=== PATIENT | male | born 1965 | race Caucasian/White ===

== ENCOUNTER 2023-11-16 18:00 | Inpatient (IN) | payer MEDICAID ==
[~2023-11-16] VITALS: Ht 170.2 cm; Wt 88.9 kg
[2023-11-16 18:02] VITALS: BP 112/68; PULSE 114; RESP 26; TEMP 101.7; O2SAT 100
[2023-11-16] MEDS ORDERED: cefTRIAXone 1,000 MG VIAL ONE (18:19)
[2023-11-16] MEDS: NACL 0.9% 1,000 ML IV SCH (18:32)
[2023-11-16 18:33] LABS: BASOPHILS # (AUTO) 0.1 K/uL (0.00-0.22); BASOPHILS % (AUTO) 0.8 % (0.0-2.0); EOSINOPHILS # (AUTO) 0.1 K/uL (0-0.4); EOSINOPHILS % (AUTO) 0.7 % (0.0-4.0); HEMATOCRIT 22.3 % (36-52); HEMOGLOBIN 7.4 g/dL (12.0-18.0); LYMPHOCYTES # (AUTO) 3.3 K/uL (2.0-11.5); LYMPHOCYTES % (AUTO) 18.7 % (20.5-51.1); MEAN CORPUSCULAR HEMOGLOBIN 30 pg (27-31); MEAN CORPUSCULAR HGB CONC 33 g/dL (33-37); MEAN CORPUSCULAR VOLUME 90.8 fL (80-94); MONOCYTES # (AUTO) 0.5 K/uL (0.8-1.0); MONOCYTES % (AUTO) 2.7 % (1.7-9.3); NEUTROPHILS # (AUTO) 13.6 K/uL (1.8-7.7); NEUTROPHILS % (AUTO) 77.1 % (42.2-75.2); PLATELET COUNT (AUTO) 350 K/uL (140-450); RED BLOOD CELL COUNT(AUTO) 2.45 MIL/uL (4.20-6.10); WHITE BLOOD COUNT (AUTO) 17.6 K/uL (4.8-10.8)
[2023-11-16 18:38] LABS: APPEARANCE,URINE CLOUDY (CLEAR); BILIRUBIN,URINE 1+ (NEGATIVE); BLOOD, URINE 3+ (NEGATIVE); COLOR,URINE YELLOW (YELLOW); LEUKOCYTE ESTERASE ,URINE 2+ (NEGATIVE); NITRITE, URINE POSITIVE (NEGATIVE); PROTEIN,URINE 1+ (NEGATIVE); UGLUCOSE TRACE (NEGATIVE); UROBILINOGEN,URINE 0.2 EU/dL (0.2 - 1)
[2023-11-16] MEDS ORDERED: HYDR-1098 PO (18:42)
[2023-11-16] MEDS ORDERED: LISI-486 PO (18:42)
[2023-11-16] MEDS ORDERED: AMIO200T62 PO (18:42)
[2023-11-16] MEDS ORDERED: MIDO10TA PO (18:42)
[2023-11-16] MEDS ORDERED: DILT60TA97 PO (18:42)
[2023-11-16] MEDS ORDERED: APIX5TAB4 PO (18:42)
[2023-11-16] MEDS ORDERED: PANT40EC PO (18:42)
[2023-11-16 18:49] LABS: ANION GAP 14.6 (8-16); CALCIUM 9.3 mg/dL (8.5-10.1); CARBON DIOXIDE 29.4 mmol/L (21-32); CREATININE 3.4 mg/dL (0.6-1.3)
[2023-11-16 18:55] LABS: BACTERIA,URINE 10-30 (MOD) /HPF (None Seen); ICTOTEST NEGATIVE (NEGATIVE); RBC,URINE 11-20 (MOD) /HPF (0-5); SQUAMOUS EPITHELIAL CELL,UR 0-3 (FEW) /LPF (0-3 (FEW))
[2023-11-16 19:06] LABS: LACTIC ACID 1.3 mmol/L (0.4-2.0)
[2023-11-16 19:15] LABS: FLU A ANTIGEN negative (NEGATIVE); FLU B ANTIGEN NEGATIVE (NEGATIVE)
[2023-11-16 20:37] VITALS: BP 104/60; PULSE 117; O2SAT 100
[2023-11-16 20:54] VITALS: BP 116/66; PULSE 117; RESP 20; TEMP 98.7; O2SAT 100
[2023-11-16 21:18] VITALS: PULSE 120
[2023-11-16] MEDS: PIPERACILLIN/TAZOBACTAM 2.25 GM in DEXTROSE 5% 50 ML IV SCH (21:26)
[2023-11-16] MEDS: hydrALAZINE 25 MG TAB PO SCH (21:26)
[2023-11-16] MEDS: APIXABAN 2.5 MG TAB PO SCH (21:27)
[2023-11-16] MEDS: PIPERACILLIN/TAZOBACTAM 2.25 GM VIAL IV ONE (21:28)
[2023-11-16 22:31] VITALS: PULSE 110; O2SAT 100
[2023-11-16 23:55] VITALS: PULSE 104
[2023-11-17] VITALS (17 sets, daily range): BP systolic 78–98; BP diastolic 45–54; PULSE 96–109; RESP 20–28; TEMP 97.7–101.5; O2SAT 99–100
[2023-11-17] MEDS: PIPERACILLIN/TAZOBACTAM 2.25 GM VIAL IV ONE (04:27)
[2023-11-17] MEDS: MIDODRINE 5 MG TAB PO SCH ×2 (06:02→20:22)
[2023-11-17] MEDS: PANTOPRAZOLE 40 MG TABEC PO SCH (08:25)
[2023-11-17] MEDS: DILTIAZEM 60 MG TAB PO SCH (08:26)
[2023-11-17] MEDS: LANSOPRAZOLE 30 MG CAPDR GT SCH (09:00)
[2023-11-17] MEDS: EPOETIN ALFA-EPBX 10,000 UNITS/ML VIAL IV SCH (10:00)
[2023-11-17] MEDS: ACETAMINOPHEN 325 MG TAB PO PRN (17:18)
[2023-11-17] MEDS: AMIODARONE 200 MG TAB PO SCH (20:34)
[2023-11-18] VITALS (40 sets, daily range): BP systolic 77–144; BP diastolic 45–77; PULSE 81–104; RESP 12–27; TEMP 98.6–101.2; O2SAT 98–100
[2023-11-18] MEDS: MIDODRINE 5 MG TAB GT STA (02:45)
[2023-11-18 04:58] LABS: BASOPHILS # (AUTO) 0.1 K/uL (0.00-0.22); BASOPHILS % (AUTO) 0.5 % (0.0-2.0); EOSINOPHILS # (AUTO) 0.2 K/uL (0-0.4); LYMPHOCYTES # (AUTO) 1.8 K/uL (2.0-11.5); MEAN CORPUSCULAR HEMOGLOBIN 31 pg (27-31); MEAN CORPUSCULAR HGB CONC 33 g/dL (33-37); MEAN CORPUSCULAR VOLUME 92.3 fL (80-94); MONOCYTES # (AUTO) 0.4 K/uL (0.8-1.0); MONOCYTES % (AUTO) 2.7 % (1.7-9.3); NEUTROPHILS # (AUTO) 12.6 K/uL (1.8-7.7); NEUTROPHILS % (AUTO) 83.8 % (42.2-75.2); PLATELET COUNT (AUTO) 314 K/uL (140-450); RED CELL DISTRIBUTION WIDTH 20.8 % (11.6-13.7)
[2023-11-18 05:00] LABS: ANION GAP 12.9 (8-16); CALCIUM 9.1 mg/dL (8.5-10.1); CARBON DIOXIDE 28.8 mmol/L (21-32); POTASSIUM 3.7 mmol/L (3.5-5.1)
[2023-11-18 05:08] LABS: CREATININE 4.8 mg/dL (0.6-1.3)
[2023-11-18] MEDS: NOREPINEPHRINE 4 MG/4 ML VIAL IV ONE ×2 (05:33→05:34)
[2023-11-18] MEDS: NOREPINEPHRINE 8 MG in DEXTROSE 5% 250 ML IV PRN (05:37)
[2023-11-18 05:51] LABS: HEMATOCRIT 18.5 % (36-52); HEMOGLOBIN 6.1 g/dL (12.0-18.0)
[2023-11-19] VITALS (33 sets, daily range): BP systolic 88–138; BP diastolic 51–75; PULSE 77–103; RESP 13–29; TEMP 98.7–100; O2SAT 97–100
[2023-11-19 06:17] LABS: BASOPHILS # (AUTO) 0.1 K/uL (0.00-0.22); BASOPHILS % (AUTO) 0.8 % (0.0-2.0); EOSINOPHILS # (AUTO) 0.2 K/uL (0-0.4); EOSINOPHILS % (AUTO) 1.3 % (0.0-4.0); LYMPHOCYTES # (AUTO) 2.6 K/uL (2.0-11.5); LYMPHOCYTES % (AUTO) 15.4 % (20.5-51.1); MEAN CORPUSCULAR HEMOGLOBIN 30 pg (27-31); MEAN CORPUSCULAR HGB CONC 33 g/dL (33-37); MEAN CORPUSCULAR VOLUME 89.4 fL (80-94); MONOCYTES # (AUTO) 0.5 K/uL (0.8-1.0); MONOCYTES % (AUTO) 3.1 % (1.7-9.3); NEUTROPHILS # (AUTO) 13.2 K/uL (1.8-7.7); NEUTROPHILS % (AUTO) 79.4 % (42.2-75.2); PLATELET COUNT (AUTO) 346 K/uL (140-450); RED BLOOD CELL COUNT(AUTO) 2.09 MIL/uL (4.20-6.10); RED CELL DISTRIBUTION WIDTH 20.4 % (11.6-13.7); WHITE BLOOD COUNT (AUTO) 16.7 K/uL (4.8-10.8)
[2023-11-19 06:36] LABS: ANION GAP 15.3 (8-16); CALCIUM 8.1 mg/dL (8.5-10.1); CARBON DIOXIDE 26.7 mmol/L (21-32); HEMATOCRIT 18.7 % (36-52); HEMOGLOBIN 6.2 g/dL (12.0-18.0)
[2023-11-19 06:58] LABS: CREATININE 5.6 mg/dL (0.6-1.3)
[2023-11-20] VITALS (36 sets, daily range): BP systolic 93–148; BP diastolic 51–81; PULSE 77–100; RESP 12–29; TEMP 98–99.5; O2SAT 99–100
[2023-11-20 00:01] LABS: HEMATOCRIT 30.3 % (36-52); HEMOGLOBIN 10.4 g/dL (12.0-18.0)
[2023-11-20 06:45] LABS: BLOOD GAS BASE EXCESS 3.7 mmol/L (-2.0-2.0); BLOOD GAS HCO3 26.4 mmol/L (22-26); BLOOD GAS O2 SAT% 96.4 % (92.0-98.5); BLOOD GAS PCO2 33.9 mmHg (35-45); BLOOD GAS PO2 81.7 mmHg (75-100)
[2023-11-20 06:53] LABS: ANION GAP 14.3 (8-16); CALCIUM 9.4 mg/dL (8.5-10.1); CARBON DIOXIDE 28.8 mmol/L (21-32); CREATININE 3.8 mg/dL (0.6-1.3); POTASSIUM 3.1 mmol/L (3.5-5.1)
[2023-11-20 06:54] LABS: BASOPHILS # (AUTO) 0.1 K/uL (0.00-0.22); BASOPHILS % (AUTO) 0.5 % (0.0-2.0); EOSINOPHILS # (AUTO) 0.2 K/uL (0-0.4); EOSINOPHILS % (AUTO) 1.7 % (0.0-4.0); HEMATOCRIT 28.4 % (36-52); HEMOGLOBIN 9.6 g/dL (12.0-18.0); LYMPHOCYTES # (AUTO) 1.3 K/uL (2.0-11.5); MEAN CORPUSCULAR HEMOGLOBIN 30 pg (27-31); MEAN CORPUSCULAR HGB CONC 34 g/dL (33-37); MEAN CORPUSCULAR VOLUME 88.8 fL (80-94); MONOCYTES # (AUTO) 0.4 K/uL (0.8-1.0); MONOCYTES % (AUTO) 2.8 % (1.7-9.3); NEUTROPHILS # (AUTO) 11.1 K/uL (1.8-7.7); PLATELET COUNT (AUTO) 269 K/uL (140-450); RED BLOOD CELL COUNT(AUTO) 3.19 MIL/uL (4.20-6.10); RED CELL DISTRIBUTION WIDTH 17.6 % (11.6-13.7)
[2023-11-20] MEDS: POTASSIUM CHLORIDE 20% 40 MEQ/15 ML UDC GT SCH (13:30)
[2023-11-20] MEDS: ONDANSETRON 4 MG/2 ML VIAL IVP PRN (14:01)
[2023-11-20] MEDS: ALBUTEROL SULFATE/IPRATROPIU 3 ML SOL IH PRN (14:21)
[2023-11-20] MEDS: ALBUTEROL SULFATE/IPRATROPIU 3 ML SOL IH SCH (19:29)
[2023-11-21] VITALS (32 sets, daily range): BP systolic 84–138; BP diastolic 45–95; PULSE 69–92; RESP 12–24; TEMP 98.7–100.4; O2SAT 97–100
[2023-11-21 05:55] LABS: BASOPHILS # (AUTO) 0.1 K/uL (0.00-0.22); BASOPHILS % (AUTO) 0.4 % (0.0-2.0); EOSINOPHILS # (AUTO) 0.3 K/uL (0-0.4); EOSINOPHILS % (AUTO) 2.2 % (0.0-4.0); HEMOGLOBIN 9.2 g/dL (12.0-18.0); LYMPHOCYTES # (AUTO) 1.8 K/uL (2.0-11.5); LYMPHOCYTES % (AUTO) 13.7 % (20.5-51.1); MEAN CORPUSCULAR HEMOGLOBIN 30 pg (27-31); MEAN CORPUSCULAR HGB CONC 34 g/dL (33-37); MEAN CORPUSCULAR VOLUME 88.8 fL (80-94); MONOCYTES # (AUTO) 0.4 K/uL (0.8-1.0); MONOCYTES % (AUTO) 2.7 % (1.7-9.3); NEUTROPHILS # (AUTO) 10.4 K/uL (1.8-7.7); PLATELET COUNT (AUTO) 267 K/uL (140-450); RED BLOOD CELL COUNT(AUTO) 3.04 MIL/uL (4.20-6.10); RED CELL DISTRIBUTION WIDTH 17.8 % (11.6-13.7); WHITE BLOOD COUNT (AUTO) 12.8 K/uL (4.8-10.8)
[2023-11-21 06:20] LABS: ANION GAP 16.3 (8-16); CALCIUM 9.8 mg/dL (8.5-10.1); CARBON DIOXIDE 27.1 mmol/L (21-32); POTASSIUM 3.4 mmol/L (3.5-5.1)
[2023-11-21 06:22] LABS: CREATININE 4.6 mg/dL (0.6-1.3)
[2023-11-21] MEDS: CIPROFLOXACIN 400 MG/200ML-D5W 200 ML IV SCH (11:52)
[2023-11-21] MEDS: HYDROcodone/APAP 5/325 MG 1 TAB TAB PO PRN (22:04)
[2023-11-22] VITALS (32 sets, daily range): BP systolic 97–146; BP diastolic 49–79; PULSE 79–119; RESP 16–26; TEMP 97.7–100.5; O2SAT 97–100
[2023-11-22 05:55] LABS: BASOPHILS # (AUTO) 0.1 K/uL (0.00-0.22); BASOPHILS % (AUTO) 0.5 % (0.0-2.0); EOSINOPHILS # (AUTO) 0.2 K/uL (0-0.4); EOSINOPHILS % (AUTO) 1.8 % (0.0-4.0); HEMATOCRIT 26.3 % (36-52); HEMOGLOBIN 8.8 g/dL (12.0-18.0); LYMPHOCYTES # (AUTO) 1.7 K/uL (2.0-11.5); LYMPHOCYTES % (AUTO) 15.1 % (20.5-51.1); MEAN CORPUSCULAR HEMOGLOBIN 31 pg (27-31); MEAN CORPUSCULAR HGB CONC 34 g/dL (33-37); MEAN CORPUSCULAR VOLUME 90.7 fL (80-94); MONOCYTES # (AUTO) 0.3 K/uL (0.8-1.0); MONOCYTES % (AUTO) 2.6 % (1.7-9.3); NEUTROPHILS # (AUTO) 8.8 K/uL (1.8-7.7); PLATELET COUNT (AUTO) 259 K/uL (140-450); RED CELL DISTRIBUTION WIDTH 17.8 % (11.6-13.7)
[2023-11-22 06:08] LABS: HEPATITIS A ANTIBODY IGM Negative (Negative); HEPATITIS B CORE AB TOTAL Negative (Negative); HEPATITIS B CORE, IGM Negative (Negative); HEPATITIS B SURFACE ANTIBODY Non Reactive (.); HEPATITIS B SURFACE ANTIGEN Negative (Negative); HEPATITIS C VIRUS ANTIBODY Non Reactive (Non Reactive)
[2023-11-22 06:52] LABS: ANION GAP 15.4 (8-16); CALCIUM 9.9 mg/dL (8.5-10.1); CARBON DIOXIDE 26.2 mmol/L (21-32); POTASSIUM 3.6 mmol/L (3.5-5.1)
[2023-11-22 06:54] LABS: CREATININE 5.3 mg/dL (0.6-1.3)
[2023-11-22 14:06] LABS: HEPATITIS A ANTIBODY TOTAL Positive (Negative)
[2023-11-23] VITALS (23 sets, daily range): BP systolic 91–139; BP diastolic 49–79; PULSE 80–101; RESP 16–26; TEMP 97.8–99.8; O2SAT 99–100
[2023-11-23 05:52] LABS: BASOPHILS % (AUTO) 0.5 % (0.0-2.0); EOSINOPHILS # (AUTO) 0.3 K/uL (0-0.4); EOSINOPHILS % (AUTO) 2.5 % (0.0-4.0); HEMATOCRIT 26.1 % (36-52); HEMOGLOBIN 8.9 g/dL (12.0-18.0); LYMPHOCYTES % (AUTO) 19.4 % (20.5-51.1); MEAN CORPUSCULAR HEMOGLOBIN 31 pg (27-31); MEAN CORPUSCULAR HGB CONC 34 g/dL (33-37); MEAN CORPUSCULAR VOLUME 89.1 fL (80-94); MONOCYTES # (AUTO) 0.4 K/uL (0.8-1.0); MONOCYTES % (AUTO) 3.9 % (1.7-9.3); NEUTROPHILS # (AUTO) 7.7 K/uL (1.8-7.7); NEUTROPHILS % (AUTO) 73.7 % (42.2-75.2); PLATELET COUNT (AUTO) 265 K/uL (140-450); RED BLOOD CELL COUNT(AUTO) 2.92 MIL/uL (4.20-6.10); RED CELL DISTRIBUTION WIDTH 17.9 % (11.6-13.7); WHITE BLOOD COUNT (AUTO) 10.4 K/uL (4.8-10.8)
[2023-11-23 06:22] LABS: ALBUMIN 1.6 g/dL (3.4-5.0); ANION GAP 10.4 (8-16); CALCIUM 9.7 mg/dL (8.5-10.1); CARBON DIOXIDE 29.4 mmol/L (21-32); POTASSIUM 3.8 mmol/L (3.5-5.1); TOTAL BILIRUBIN 0.2 mg/dL (0.0-1.0); TOTAL PROTEIN, SERUM 7.7 g/dL (6.4-8.2)
[2023-11-23] MEDS ORDERED: THERAHONEY GEL 42.5 GM TP PRN (12:20)
[2023-11-23] MEDS ORDERED: Z-GUARD PASTE TP PRN (12:20)
[2023-11-23] MEDS ORDERED: HYDROCOLLOID DRESSING TP PRN (12:20)
[2023-11-23] MEDS: GAUZE TP SCH (13:00)
[2023-11-23] MEDS: THERAHONEY GEL 42.5 GM TP SCH (13:00)
[2023-11-23] MEDS: Z-GUARD PASTE TP SCH (13:08)
[2023-11-24] VITALS (14 sets, daily range): BP systolic 92–152; BP diastolic 53–61; PULSE 77–95; RESP 18–27; TEMP 96.2–98; O2SAT 96–100
[2023-11-24] MEDS: ALBUMIN HUMAN 25% 200 ML IV SCH (12:38)
[2023-11-24] MEDS ORDERED: VANCOMYCIN PER PHARMACY MC PRN (23:10)
[2023-11-24] MEDS ORDERED: VANCOMYCIN 1,000 MG in DEXTROSE 5% 250 ML IV SCH (23:20)
[2023-11-25] VITALS (16 sets, daily range): BP systolic 91–108; BP diastolic 50–61; PULSE 84–116; RESP 18–25; TEMP 97.4–102.2; O2SAT 97–100
[2023-11-25 06:05] LABS: ANION GAP 10.7 (8-16); CALCIUM 10.2 mg/dL (8.5-10.1); CARBON DIOXIDE 30.6 mmol/L (21-32); CREATININE 3.7 mg/dL (0.6-1.3); POTASSIUM 4.3 mmol/L (3.5-5.1)
[2023-11-25 06:14] LABS: BASOPHILS # (AUTO) 0.1 K/uL (0.00-0.22); BASOPHILS % (AUTO) 0.6 % (0.0-2.0); EOSINOPHILS # (AUTO) 0.4 K/uL (0-0.4); EOSINOPHILS % (AUTO) 3.6 % (0.0-4.0); HEMATOCRIT 24.5 % (36-52); HEMOGLOBIN 8.2 g/dL (12.0-18.0); LYMPHOCYTES % (AUTO) 25.8 % (20.5-51.1); MAGNESIUM 2.1 mg/dL (1.8-2.4); MEAN CORPUSCULAR HEMOGLOBIN 30 pg (27-31); MEAN CORPUSCULAR HGB CONC 34 g/dL (33-37); MEAN CORPUSCULAR VOLUME 90.1 fL (80-94); MONOCYTES # (AUTO) 0.3 K/uL (0.8-1.0); MONOCYTES % (AUTO) 2.5 % (1.7-9.3); NEUTROPHILS # (AUTO) 7.9 K/uL (1.8-7.7); NEUTROPHILS % (AUTO) 67.5 % (42.2-75.2); PHOSPHORUS 3.3 mg/dL (2.5-4.9); PLATELET COUNT (AUTO) 238 K/uL (140-450); RED BLOOD CELL COUNT(AUTO) 2.72 MIL/uL (4.20-6.10); RED CELL DISTRIBUTION WIDTH 17.8 % (11.6-13.7); WHITE BLOOD COUNT (AUTO) 11.7 K/uL (4.8-10.8)
[2023-11-25] MEDS ORDERED: VANCOMYCIN 750 MG in DEXTROSE 5% 250 ML IV SCH (09:00)
[2023-11-25] MEDS: AMIODARONE 200 MG TAB PO SCH (21:07)
[2023-11-26] VITALS (13 sets, daily range): BP systolic 92–111; BP diastolic 49–58; PULSE 83–110; RESP 3–25; TEMP 98.2–101.5; O2SAT 98–100
[2023-11-26 06:13] LABS: BASOPHILS # (AUTO) 0.1 K/uL (0.00-0.22); BASOPHILS % (AUTO) 0.6 % (0.0-2.0); EOSINOPHILS # (AUTO) 0.4 K/uL (0-0.4); HEMATOCRIT 25.9 % (36-52); HEMOGLOBIN 8.7 g/dL (12.0-18.0); LYMPHOCYTES # (AUTO) 3.2 K/uL (2.0-11.5); LYMPHOCYTES % (AUTO) 22.2 % (20.5-51.1); MEAN CORPUSCULAR HEMOGLOBIN 30 pg (27-31); MEAN CORPUSCULAR HGB CONC 34 g/dL (33-37); MEAN CORPUSCULAR VOLUME 88.5 fL (80-94); MONOCYTES # (AUTO) 0.3 K/uL (0.8-1.0); MONOCYTES % (AUTO) 2.1 % (1.7-9.3); NEUTROPHILS # (AUTO) 10.3 K/uL (1.8-7.7); NEUTROPHILS % (AUTO) 72.1 % (42.2-75.2); PLATELET COUNT (AUTO) 255 K/uL (140-450); RED BLOOD CELL COUNT(AUTO) 2.92 MIL/uL (4.20-6.10); RED CELL DISTRIBUTION WIDTH 17.8 % (11.6-13.7); WHITE BLOOD COUNT (AUTO) 14.3 K/uL (4.8-10.8)
[2023-11-26 07:06] LABS: ANION GAP 13.5 (8-16); CALCIUM 10.3 mg/dL (8.5-10.1); CARBON DIOXIDE 27.2 mmol/L (21-32); POTASSIUM 4.7 mmol/L (3.5-5.1)
[2023-11-26 07:12] LABS: PHOSPHORUS 4.2 mg/dL (2.5-4.9)
[2023-11-26 08:11] LABS: CREATININE 4.8 mg/dL (0.6-1.3)
[2023-11-26] MEDS: HYDROCOLLOID DRESSING TP SCH (09:00)
[2023-11-26] MEDS: metroNIDAZOLE 500 MG TAB GT SCH (09:44)
[2023-11-26] MEDS: ALBUMIN HUMAN 25% 200 ML IV SCH (16:38)
[2023-11-27] VITALS (14 sets, daily range): BP systolic 89–115; BP diastolic 43–62; PULSE 80–91; RESP 18–25; TEMP 97.2–98.7; O2SAT 98–100
[2023-11-27 06:47] LABS: ANION GAP 11.2 (8-16); CALCIUM 10.3 mg/dL (8.5-10.1); CARBON DIOXIDE 29.8 mmol/L (21-32); CREATININE 3.6 mg/dL (0.6-1.3)
[2023-11-27 06:56] LABS: HEMATOCRIT 22.4 % (36-52); HEMOGLOBIN 7.6 g/dL (12.0-18.0); MEAN CORPUSCULAR HEMOGLOBIN 30 pg (27-31); MEAN CORPUSCULAR HGB CONC 34 g/dL (33-37); MEAN CORPUSCULAR VOLUME 88.6 fL (80-94); PLATELET COUNT (AUTO) 201 K/uL (140-450); RED BLOOD CELL COUNT(AUTO) 2.53 MIL/uL (4.20-6.10)
[2023-11-27 07:00] LABS: MAGNESIUM 1.8 mg/dL (1.8-2.4); PHOSPHORUS 3.9 mg/dL (2.5-4.9)
[2023-11-27 08:07] LABS: EOSINOPHILS % (MANUAL) 3 % (0-4); MONOCYTES % (MANUAL) 4 % (5-12)
[2023-11-27 08:08] LABS: LYMPHOCYTES % (MANUAL) 17 % (20-46)
[2023-11-28] VITALS (14 sets, daily range): BP systolic 100–123; BP diastolic 57–69; PULSE 81–97; RESP 17–24; TEMP 97–98.3; O2SAT 97–100
[2023-11-28 06:28] LABS: BASOPHILS # (AUTO) 0.1 K/uL (0.00-0.22); BASOPHILS % (AUTO) 0.5 % (0.0-2.0); EOSINOPHILS # (AUTO) 0.5 K/uL (0-0.4); EOSINOPHILS % (AUTO) 3.8 % (0.0-4.0); HEMATOCRIT 22.3 % (36-52); HEMOGLOBIN 7.5 g/dL (12.0-18.0); LYMPHOCYTES # (AUTO) 3.1 K/uL (2.0-11.5); LYMPHOCYTES % (AUTO) 24.6 % (20.5-51.1); MEAN CORPUSCULAR HEMOGLOBIN 30 pg (27-31); MEAN CORPUSCULAR HGB CONC 34 g/dL (33-37); MEAN CORPUSCULAR VOLUME 88.4 fL (80-94); MONOCYTES # (AUTO) 0.3 K/uL (0.8-1.0); MONOCYTES % (AUTO) 2.6 % (1.7-9.3); NEUTROPHILS # (AUTO) 8.7 K/uL (1.8-7.7); NEUTROPHILS % (AUTO) 68.5 % (42.2-75.2); PLATELET COUNT (AUTO) 190 K/uL (140-450); RED BLOOD CELL COUNT(AUTO) 2.52 MIL/uL (4.20-6.10); RED CELL DISTRIBUTION WIDTH 17.6 % (11.6-13.7); WHITE BLOOD COUNT (AUTO) 12.7 K/uL (4.8-10.8)
[2023-11-28 06:48] LABS: CALCIUM 10.6 mg/dL (8.5-10.1); CARBON DIOXIDE 28.3 mmol/L (21-32); POTASSIUM 4.3 mmol/L (3.5-5.1)
[2023-11-28 07:17] LABS: MAGNESIUM 2.4 mg/dL (1.8-2.4); PHOSPHORUS 4.9 mg/dL (2.5-4.9)
[2023-11-28 07:28] LABS: CREATININE 4.7 mg/dL (0.6-1.3)
[2023-11-28] MEDS: CIPROFLOXACIN 250 MG TAB GT SCH (08:50)
[2023-11-29] VITALS (12 sets, daily range): BP systolic 100–127; BP diastolic 57–70; PULSE 87–99; RESP 18–24; TEMP 97.1–98.8; O2SAT 92–100
[2023-11-29 06:44] LABS: HEMATOCRIT 23.1 % (36-52); HEMOGLOBIN 7.8 g/dL (12.0-18.0); MEAN CORPUSCULAR HEMOGLOBIN 29 pg (27-31); MEAN CORPUSCULAR HGB CONC 34 g/dL (33-37); PLATELET COUNT (AUTO) 255 K/uL (140-450); RED BLOOD CELL COUNT(AUTO) 2.66 MIL/uL (4.20-6.10); RED CELL DISTRIBUTION WIDTH 17.9 % (11.6-13.7); WHITE BLOOD COUNT (AUTO) 12.5 K/uL (4.8-10.8)
[2023-11-29 07:02] LABS: MAGNESIUM 2.4 mg/dL (1.8-2.4); PHOSPHORUS 5.7 mg/dL (2.5-4.9)
[2023-11-29 07:25] LABS: BILIRUBIN,URINE 1+ (NEGATIVE); BLOOD, URINE NEGATIVE (NEGATIVE); LEUKOCYTE ESTERASE ,URINE TRACE (NEGATIVE); NITRITE, URINE POSITIVE (NEGATIVE); PROTEIN,URINE 1+ (NEGATIVE); UGLUCOSE NEGATIVE (NEGATIVE)
[2023-11-29 07:44] LABS: APPEARANCE,URINE HAZY (CLEAR); COLOR,URINE AMBER (YELLOW)
[2023-11-29 07:54] LABS: BACTERIA,URINE 1+ /HPF (None Seen); RBC,URINE 0-5 /HPF (0-5); SQUAMOUS EPITHELIAL CELL,UR 0-3 (FEW) /LPF (0-3 (FEW)); WBC,URINE 0-5 /HPF (0-5); YEAST,URINE Many /HPF (None Seen)
[2023-11-29 07:57] LABS: ICTOTEST NEGATIVE (NEGATIVE)
[2023-11-29 07:57] LABS: EOSINOPHILS % (MANUAL) 2 % (0-4); LYMPHOCYTES % (MANUAL) 19 % (20-46); MONOCYTES % (MANUAL) 4 % (5-12)
[2023-11-29 08:14] LABS: ANION GAP 15.2 (8-16); CALCIUM 10.5 mg/dL (8.5-10.1); CARBON DIOXIDE 26.4 mmol/L (21-32); POTASSIUM 4.6 mmol/L (3.5-5.1)
[2023-11-29 08:19] LABS: CREATININE 5.4 mg/dL (0.6-1.3)
[2023-11-29] MEDS ORDERED: PRO5 PO (08:55)
[2023-11-29] MEDS ORDERED: AMIO200T10 PO (08:55)
[2023-11-29] MEDS ORDERED: METR-435 GT (08:55)
[2023-11-29] MEDS ORDERED: CIPR250T3 GT (08:55)
[2023-11-29] MEDS: ALBUMIN HUMAN 25% 50 ML IV SCH (12:43)
[2023-12-07] MEDS ORDERED: ZINC220C9 GT (01:01)
[2023-12-07] MEDS ORDERED: CHLOR MT (01:01)
[2023-12-07] MEDS ORDERED: AMIO200T70 GT (01:01)
[2023-12-07] MEDS ORDERED: DILT30TA18 GT (01:01)
[2023-12-07] MEDS ORDERED: SEVE800T6 GT (01:01)
[2023-12-07] MEDS ORDERED: DILT60TA GT (01:01)
[2023-12-07] MEDS ORDERED: NUTR30LI2 GT (01:01)
[2023-12-07] MEDS ORDERED: DOCU-299 PO (01:01)
[2023-12-07] MEDS ORDERED: CHLO100S54 GT (01:01)
[2023-12-07] MEDS ORDERED: APIX2.5 GT (01:01)
[2023-12-07] MEDS ORDERED: ASCO500T95 GT (01:01)
[2023-12-07] MEDS ORDERED: MID5 GT (01:01)
[2023-12-07] MEDS ORDERED: HYDR-1098 GT (01:01)
[2023-12-07] MEDS ORDERED: ONDA4TAB12 GT (01:01)
[2023-12-07] MEDS ORDERED: CIPR500T4 GT (01:01)
[2023-12-07] MEDS ORDERED: BISA-213 RC (01:01)
[2023-12-07] MEDS ORDERED: PANT40EC GT (01:01)
[2023-12-07] MEDS ORDERED: ALBU0.0912 IH ×2 (01:01)
[2023-12-07] MEDS ORDERED: ACET-2619 GT (01:01)
[2023-12-07] MEDS ORDERED: LISI-486 GT (01:01)
[2023-12-07] MEDS ORDERED: VITA1TAB44 GT (01:01)
[2023-12-07] MEDS ORDERED: NUTR30LI2 PO ×2 (01:01)
[2023-12-07] MEDS ORDERED: ATRMDI IH ×2 (01:01)
== END 2023-11-29 17:40 | DRG 720 ==
LOC: MED 18:00 → MTU 19:37 → MLD 11-18 04:41 → MIC 11-18 04:45 → MTU 11-23 21:10
PROVIDERS: ADMIT Family Medicine; ATTEND Family Medicine
PROC: 5A1955Z Respiratory Ventilation, Greater than 96 Consecutive Hours (ICD-10-PCS; principal; 2023-11-16)
PROC: 05HY33Z Insertion of Infusion Device into Upper Vein, Percutaneous Approach (ICD-10-PCS; 2023-11-16)
PROC: 5A1D70Z Performance of Urinary Filtration, Intermittent, Less than 6 Hours Per Day (ICD-10-PCS; 2023-11-19)
PROC: 30233N1 Transfusion of Nonautologous Red Blood Cells into Peripheral Vein, Percutaneous Approach (ICD-10-PCS; 2023-11-19)
PROC: 5A1D70Z Performance of Urinary Filtration, Intermittent, Less than 6 Hours Per Day (ICD-10-PCS; 2023-11-22)
PROC: 5A1D70Z Performance of Urinary Filtration, Intermittent, Less than 6 Hours Per Day (ICD-10-PCS; 2023-11-24)
PROC: 5A1D70Z Performance of Urinary Filtration, Intermittent, Less than 6 Hours Per Day (ICD-10-PCS; 2023-11-26)
PROC: 5A1D70Z Performance of Urinary Filtration, Intermittent, Less than 6 Hours Per Day (ICD-10-PCS; 2023-11-29)
DX: A41.9 Sepsis, unspecified organism (principal); J96.21 Acute and chronic respiratory failure with hypoxia; R65.21 Severe sepsis with septic shock; G93.40 Encephalopathy, unspecified; J15.1 Pneumonia due to Pseudomonas; E46 Unspecified protein-calorie malnutrition; L89.154 Pressure ulcer of sacral region, stage 4; I12.0 Hypertensive chronic kidney disease with stage 5 chronic kidney disease or end stage renal disease; Z20.822 Contact with and (suspected) exposure to COVID-19; N18.6 End stage renal disease; N39.0 Urinary tract infection, site not specified; K21.9 Gastro-esophageal reflux disease without esophagitis; M10.9 Gout, unspecified; D64.9 Anemia, unspecified; L03.116 Cellulitis of left lower limb; L03.115 Cellulitis of right lower limb; I48.0 Paroxysmal atrial fibrillation; Z99.11 Dependence on respirator [ventilator] status; Z99.2 Dependence on renal dialysis; Z86.73 Personal history of transient ischemic attack (TIA), and cerebral infarction without residual deficits; Z79.899 Other long term (current) drug therapy; Z68.30 Body mass index [BMI] 30.0-30.9, adult; Z93.0 Tracheostomy status; Z93.1 Gastrostomy status; E11.69 Type 2 diabetes mellitus with other specified complication; M86.172 Other acute osteomyelitis, left ankle and foot; M86.171 Other acute osteomyelitis, right ankle and foot
CPT/HCPCS: 36415; 36430; 71045; 73630; 73700; 74018; 80048; 80053; 81001; 82272; 82948; 83605; 83735; 83880; 84100; 84484; 85018; 85025; 86704; 86706; 86708; 86709; 86803; 86870; 86886; 86900; 86901; 86920; 87040; 87070; 87081; 87086; 87186; 87205; 87340; 89220; 90935; 93005; 93925; 94002; 94003; 94640; 96365; 99285; J0696; J0744; J1644; J2405; J2543; J3370; J3490; J7060; P9016; P9046; Q0092; Q5106

== ENCOUNTER 2023-12-06 14:07 | Emergency (ER) | payer MEDICAID ==
[~2023-12-06] VITALS: Ht 172.7 cm; Wt 81.6 kg
[2023-12-06] VITALS (8 sets, daily range): BP systolic 93–136; BP diastolic 46–66; PULSE 75–106; RESP 21–30; TEMP 97.7–98.5; O2SAT 99–100
[~2023-12-06 14:07] MED LIST: AMIO200T10 PO; APIX5TAB4 PO; CIPR250T3 GT; METR-435 GT; PANT40EC PO; PRO5 PO
[2023-12-06 15:11] LABS: BASOPHILS # (AUTO) 0.1 K/uL (0.00-0.22); BASOPHILS % (AUTO) 0.5 % (0.0-2.0); EOSINOPHILS # (AUTO) 0.5 K/uL (0-0.4); EOSINOPHILS % (AUTO) 2.4 % (0.0-4.0); HEMATOCRIT 22.1 % (36-52); HEMOGLOBIN 7.2 g/dL (12.0-18.0); LYMPHOCYTES # (AUTO) 2.8 K/uL (2.0-11.5); LYMPHOCYTES % (AUTO) 14.5 % (20.5-51.1); MEAN CORPUSCULAR HEMOGLOBIN 28 pg (27-31); MEAN CORPUSCULAR HGB CONC 33 g/dL (33-37); MEAN CORPUSCULAR VOLUME 87.1 fL (80-94); MONOCYTES # (AUTO) 0.5 K/uL (0.8-1.0); MONOCYTES % (AUTO) 2.5 % (1.7-9.3); NEUTROPHILS # (AUTO) 15.6 K/uL (1.8-7.7); NEUTROPHILS % (AUTO) 80.1 % (42.2-75.2); PLATELET COUNT (AUTO) 636 K/uL (140-450); RED BLOOD CELL COUNT(AUTO) 2.53 MIL/uL (4.20-6.10); RED CELL DISTRIBUTION WIDTH 18.1 % (11.6-13.7); WHITE BLOOD COUNT (AUTO) 19.4 K/uL (4.8-10.8)
[2023-12-06 15:26] LABS: ANION GAP 16.5 (8-16); CALCIUM 9.3 mg/dL (8.5-10.1); CARBON DIOXIDE 27.1 mmol/L (21-32); POTASSIUM 3.6 mmol/L (3.5-5.1)
[2023-12-06 15:29] LABS: CREATININE 4.7 mg/dL (0.6-1.3)
[2023-12-06 15:44] LABS: INR 1.16 (0.8-1.2); PROTHROMBIN TIME 12.1 secs (10.8-13.4)
[2023-12-06] MEDS: NACL 0.9% 500 ML IV ONE (16:08)
[2023-12-06] MEDS: NACL 0.9% 1,000 ML IV ONE (20:08)
[2023-12-07] MEDS ORDERED: CHLOR MT (01:01)
[2023-12-07] MEDS ORDERED: ZINC220C9 GT (01:01)
[2023-12-07] MEDS ORDERED: ALBU0.0912 IH ×2 (01:01)
[2023-12-07] MEDS ORDERED: ONDA4TAB12 GT (01:01)
[2023-12-07] MEDS ORDERED: DILT30TA18 GT (01:01)
[2023-12-07] MEDS ORDERED: VITA1TAB44 GT (01:01)
[2023-12-07] MEDS ORDERED: CIPR500T4 GT (01:01)
[2023-12-07] MEDS ORDERED: MID5 GT (01:01)
[2023-12-07] MEDS ORDERED: DILT60TA GT (01:01)
[2023-12-07] MEDS ORDERED: BISA-213 RC (01:01)
[2023-12-07] MEDS ORDERED: AMIO200T70 GT (01:01)
[2023-12-07] MEDS ORDERED: ACET-2619 GT (01:01)
[2023-12-07] MEDS ORDERED: NUTR30LI2 GT (01:01)
[2023-12-07] MEDS ORDERED: CHLO100S54 GT (01:01)
[2023-12-07] MEDS ORDERED: NUTR30LI2 PO ×2 (01:01)
[2023-12-07] MEDS ORDERED: DOCU-299 PO (01:01)
[2023-12-07] MEDS ORDERED: LISI-486 GT (01:01)
[2023-12-07] MEDS ORDERED: APIX2.5 GT (01:01)
[2023-12-07] MEDS ORDERED: HYDR-1098 GT (01:01)
[2023-12-07] MEDS ORDERED: PANT40EC GT (01:01)
[2023-12-07] MEDS ORDERED: SEVE800T6 GT (01:01)
[2023-12-07] MEDS ORDERED: ASCO500T95 GT (01:01)
[2023-12-07] MEDS ORDERED: ATRMDI IH ×2 (01:01)
== END 2023-12-06 22:30 ==
LOC: MED 14:07
DX: D64.9 Anemia, unspecified (principal); I13.11 Hypertensive heart and chronic kidney disease without heart failure, with stage 5 chronic kidney disease, or end stage renal disease; N18.6 End stage renal disease; K21.9 Gastro-esophageal reflux disease without esophagitis; Z99.2 Dependence on renal dialysis; Z79.899 Other long term (current) drug therapy
CPT/HCPCS: 36415; 51702; 71045; 80048; 85025; 85610; 86886; 86900; 86901; 96360; 96361; 99285; J7030

== ENCOUNTER 2023-12-12 19:46 | Inpatient (IN) | payer MEDICAID ==
[~2023-12-12] VITALS: Ht 170.2 cm; Wt 98.0 kg
[2023-12-12 19:46] VITALS: BP 114/61; PULSE 106; RESP 26; TEMP 98.8; O2SAT 99
[~2023-12-12 19:46] MED LIST changes: +ACET-2619 GT; +ALBU0.0912 IH; +ASCO500T95 GT; +ATRMDI IH; +BISA-213 RC; +CHLOR MT; +CIPR500T4 GT; +DILT30TA18 GT; +DILT60TA GT; +DOCU-299 PO; +HYDR-1098 GT; +LISI-486 GT; +MID5 GT; +NUTR30LI2 GT; +ONDA4TAB12 GT; +SEVE800T6 GT; +VITA1TAB44 GT; +ZINC220C9 GT
[2023-12-12 20:19] LABS: HEMATOCRIT 24.1 % (36-52); HEMOGLOBIN 7.8 g/dL (12.0-18.0); MEAN CORPUSCULAR HEMOGLOBIN 28 pg (27-31); MEAN CORPUSCULAR HGB CONC 32 g/dL (33-37); PLATELET COUNT (AUTO) 481 K/uL (140-450); RED BLOOD CELL COUNT(AUTO) 2.77 MIL/uL (4.20-6.10); RED CELL DISTRIBUTION WIDTH 17.1 % (11.6-13.7)
[2023-12-12 20:21] LABS: WHITE BLOOD COUNT (AUTO) 25.7 K/uL (4.8-10.8)
[2023-12-12] MEDS ORDERED: VANCOMYCIN 1,000 MG VIAL ONE (20:30)
[2023-12-12] MEDS ORDERED: PIPERACILLIN/TAZOBACTAM 3.375 GM VIAL IV ONE (20:30)
[2023-12-12 20:34] LABS: INR 1.18 (0.8-1.2); PARTIAL THROMBOPLASTIN TIME 37.7 secs (22-35.6); PROTHROMBIN TIME 12.3 secs (10.8-13.4)
[2023-12-12 20:40] LABS: LACTIC ACID 3.9 mmol/L (0.4-2.0)
[2023-12-12 20:42] LABS: ANION GAP 14.6 (8-16); CALCIUM 8.9 mg/dL (8.5-10.1); CARBON DIOXIDE 28.6 mmol/L (21-32); CREATININE 3.3 mg/dL (0.6-1.3); HYPOCHROMASIA 2+; LYMPHOCYTES % (MANUAL) 12 % (20-46); MONOCYTES % (MANUAL) 1 % (5-12); PLATELET ESTIMATE ADEQUATE; POTASSIUM 3.2 mmol/L (3.5-5.1); PROMYELOCYTES % 2 % (0-0)
[2023-12-12 20:47] LABS: ALANINE AMINOTRANSFERASE 6 U/L (12-78); ALBUMIN 1.7 g/dL (3.4-5.0); ALKALINE PHOSPHATASE 88 U/L (50-136); ASPARTATE AMINOTRANSFERASE 42 U/L (15-37); BILIRUBIN,DIRECT 0.2 mg/dL (0.0-0.3); CREATINE KINASE, TOTAL 99 U/L (39-308); TOTAL BILIRUBIN 0.4 mg/dL (0.0-1.0); TOTAL PROTEIN, SERUM 6.9 g/dL (6.4-8.2)
[2023-12-12] MEDS: PIPERACILLIN/TAZOBACTAM 3.375 GM in DEXTROSE 5% 50 ML IV ONE (20:56)
[2023-12-12] MEDS: NACL 0.9% 500 ML IV SCH (20:57)
[2023-12-12] MEDS: VANCOMYCIN 1,000 MG in DEXTROSE 5% 250 ML IV ONE (21:30)
[2023-12-12 21:57] LABS: FLU A ANTIGEN negative (NEGATIVE); FLU B ANTIGEN NEGATIVE (NEGATIVE)
[2023-12-12] MEDS: NACL 0.9% 500 ML IV ONE (22:52)
[2023-12-12 23:17] VITALS: PULSE 90; RESP 26; O2SAT 99
[2023-12-12] MEDS ORDERED: NOREPINEPHRINE 4 MG/4 ML VIAL IV ONE (23:49)
[2023-12-13] VITALS (28 sets, daily range): BP systolic 83–134; BP diastolic 48–76; PULSE 72–107; RESP 16–23; TEMP 96.5–98.4; O2SAT 97–100
[2023-12-13] MEDS: NOREPINEPHRINE 4 MG in DEXTROSE 5% 250 ML IV PRN ×2 (00:04→00:24)
[2023-12-13 05:38] LABS: BASOPHILS # (AUTO) 0.1 K/uL (0.00-0.22); BASOPHILS % (AUTO) 0.4 % (0.0-2.0); EOSINOPHILS # (AUTO) 0.4 K/uL (0-0.4); EOSINOPHILS % (AUTO) 1.3 % (0.0-4.0); HEMATOCRIT 22.9 % (36-52); HEMOGLOBIN 7.3 g/dL (12.0-18.0); LYMPHOCYTES # (AUTO) 3.1 K/uL (2.0-11.5); MEAN CORPUSCULAR HEMOGLOBIN 28 pg (27-31); MEAN CORPUSCULAR HGB CONC 32 g/dL (33-37); MEAN CORPUSCULAR VOLUME 88.5 fL (80-94); MONOCYTES % (AUTO) 3.4 % (1.7-9.3); NEUTROPHILS # (AUTO) 26.1 K/uL (1.8-7.7); NEUTROPHILS % (AUTO) 84.9 % (42.2-75.2); PLATELET COUNT (AUTO) 457 K/uL (140-450); RED BLOOD CELL COUNT(AUTO) 2.58 MIL/uL (4.20-6.10); RED CELL DISTRIBUTION WIDTH 17.6 % (11.6-13.7)
[2023-12-13 05:57] LABS: WHITE BLOOD COUNT (AUTO) 30.7 K/uL (4.8-10.8)
[2023-12-13 06:07] LABS: ALBUMIN 1.7 g/dL (3.4-5.0); ANION GAP 14.9 (8-16); CALCIUM 8.9 mg/dL (8.5-10.1); CARBON DIOXIDE 27.2 mmol/L (21-32); CREATININE 3.5 mg/dL (0.6-1.3); POTASSIUM 3.1 mmol/L (3.5-5.1); TOTAL BILIRUBIN 0.4 mg/dL (0.0-1.0); TOTAL PROTEIN, SERUM 6.6 g/dL (6.4-8.2)
[2023-12-13] MEDS: NOREPINEPHRINE 4 MG/4 ML VIAL IV ONE (07:14)
[2023-12-13] MEDS: NOREPINEPHRINE 16 MG in DEXTROSE 5% 250 ML IV PRN (07:30)
[2023-12-13] MEDS: AMIODARONE 200 MG TAB GT SCH (08:10)
[2023-12-13] MEDS: DILTIAZEM 60 MG TAB GT SCH (08:10)
[2023-12-13] MEDS: aMILoride 5 MG TAB GT SCH (08:11)
[2023-12-13] MEDS: ASCORBIC ACID 500 MG TAB GT SCH (08:12)
[2023-12-13] MEDS: PANTOPRAZOLE 40 MG INJ VIAL IVP SCH (08:12)
[2023-12-13] MEDS: VIT-B COMP/VIT-C/FOLIC ACID 1 TAB GT SCH (08:12)
[2023-12-13] MEDS: ZINC SULF 220 MG CAP GT SCH (08:12)
[2023-12-13] MEDS: DOCUSATE 100 MG/10 ML UDC GT SCH (08:13)
[2023-12-13] MEDS ORDERED: SEVELAMER CARBONATE 800 MG TAB PO SCH (09:00)
[2023-12-13] MEDS ORDERED: PROTEIN HYDROLYS GT SCH (09:00)
[2023-12-13] MEDS ORDERED: AMINO ACIDS GT SCH (09:00)
[2023-12-13] MEDS: KCL 20 MEQ IN 100 mL PREMIX 100 ML IV ONE ×2 (20:17→21:42)
[2023-12-14] VITALS (32 sets, daily range): BP systolic 78–111; BP diastolic 48–88; PULSE 84–112; RESP 16–27; TEMP 36.3; O2SAT 99–100
[2023-12-14 05:57] LABS: BASOPHILS # (AUTO) 0.1 K/uL (0.00-0.22); BASOPHILS % (AUTO) 0.3 % (0.0-2.0); EOSINOPHILS # (AUTO) 0.5 K/uL (0-0.4); EOSINOPHILS % (AUTO) 1.5 % (0.0-4.0); HEMATOCRIT 22.9 % (36-52); HEMOGLOBIN 7.5 g/dL (12.0-18.0); LYMPHOCYTES # (AUTO) 2.4 K/uL (2.0-11.5); LYMPHOCYTES % (AUTO) 7.6 % (20.5-51.1); MEAN CORPUSCULAR HEMOGLOBIN 29 pg (27-31); MEAN CORPUSCULAR HGB CONC 33 g/dL (33-37); MONOCYTES # (AUTO) 0.9 K/uL (0.8-1.0); MONOCYTES % (AUTO) 2.7 % (1.7-9.3); NEUTROPHILS # (AUTO) 28.2 K/uL (1.8-7.7); NEUTROPHILS % (AUTO) 87.9 % (42.2-75.2); PLATELET COUNT (AUTO) 389 K/uL (140-450); RED BLOOD CELL COUNT(AUTO) 2.63 MIL/uL (4.20-6.10); RED CELL DISTRIBUTION WIDTH 17.7 % (11.6-13.7)
[2023-12-14 06:10] LABS: ANION GAP 13.4 (8-16); CALCIUM 9.4 mg/dL (8.5-10.1); CARBON DIOXIDE 26.5 mmol/L (21-32); POTASSIUM 3.9 mmol/L (3.5-5.1)
[2023-12-14 06:28] LABS: PHOSPHORUS 2.8 mg/dL (2.5-4.9)
[2023-12-14] MEDS ORDERED: VANCOMYCIN PER PHARMACY MC PRN (07:55)
[2023-12-14] MEDS: MEROPENEM 1,000 MG in NACL 0.9% 50 ML IV SCH (09:00)
[2023-12-14] MEDS: VANCOMYCIN 1,000 MG in DEXTROSE 5% 250 ML IV SCH (10:36)
[2023-12-14 12:14] LABS: BILIRUBIN,URINE 1+ (NEGATIVE); BLOOD, URINE 3+ (NEGATIVE); COLOR,URINE YELLOW (YELLOW); LEUKOCYTE ESTERASE ,URINE 2+ (NEGATIVE); NITRITE, URINE POSITIVE (NEGATIVE); PH,URINE 6.5 (5.0-9.0); PROTEIN,URINE 3+ (NEGATIVE); UGLUCOSE TRACE (NEGATIVE); UROBILINOGEN,URINE 0.2 EU/dL (0.2 - 1)
[2023-12-14] MEDS ORDERED: HYDROCOLLOID DRESSING TP PRN (12:15)
[2023-12-14] MEDS ORDERED: THERAHONEY GEL 42.5 GM TP PRN (12:15)
[2023-12-14] MEDS ORDERED: NON ADHERENT DRESSING TP PRN (12:15)
[2023-12-14 12:33] LABS: APPEARANCE,URINE HAZY (CLEAR)
[2023-12-14 12:36] LABS: BACTERIA,URINE 1+ /HPF (None Seen); SQUAMOUS EPITHELIAL CELL,UR 0-3 (FEW) /LPF (0-3 (FEW)); WBC,URINE 20-60 /HPF (0-5)
[2023-12-14 12:37] LABS: YEAST,URINE Moderate /HPF (None Seen)
[2023-12-14 12:40] LABS: ICTOTEST NEGATIVE (NEGATIVE)
[2023-12-14] MEDS: GAUZE TP SCH (13:20)
[2023-12-14] MEDS: SEVELAMER GT SCH (13:51)
[2023-12-14] MEDS: THERAHONEY GEL 42.5 GM TP SCH (13:51)
[2023-12-14] MEDS: NON ADHERENT DRESSING TP SCH (13:51)
[2023-12-15] VITALS (36 sets, daily range): BP systolic 64–142; BP diastolic 41–79; PULSE 89–111; RESP 16–30; TEMP 97.2–98.6; O2SAT 97–100
[2023-12-15 05:53] LABS: ANION GAP 11.1 (8-16); CALCIUM 9.5 mg/dL (8.5-10.1); CARBON DIOXIDE 28.6 mmol/L (21-32); CREATININE 2.9 mg/dL (0.6-1.3); POTASSIUM 3.7 mmol/L (3.5-5.1)
[2023-12-15 06:01] LABS: BASOPHILS # (AUTO) 0.1 K/uL (0.00-0.22); BASOPHILS % (AUTO) 0.2 % (0.0-2.0); EOSINOPHILS # (AUTO) 0.3 K/uL (0-0.4); HEMATOCRIT 23.3 % (36-52); HEMOGLOBIN 7.6 g/dL (12.0-18.0); LYMPHOCYTES # (AUTO) 2.3 K/uL (2.0-11.5); LYMPHOCYTES % (AUTO) 8.6 % (20.5-51.1); MEAN CORPUSCULAR HEMOGLOBIN 28 pg (27-31); MEAN CORPUSCULAR HGB CONC 33 g/dL (33-37); MONOCYTES # (AUTO) 0.9 K/uL (0.8-1.0); MONOCYTES % (AUTO) 3.1 % (1.7-9.3); NEUTROPHILS # (AUTO) 23.7 K/uL (1.8-7.7); NEUTROPHILS % (AUTO) 87.1 % (42.2-75.2); PLATELET COUNT (AUTO) 455 K/uL (140-450); RED BLOOD CELL COUNT(AUTO) 2.68 MIL/uL (4.20-6.10); RED CELL DISTRIBUTION WIDTH 17.8 % (11.6-13.7)
[2023-12-15 06:23] LABS: WHITE BLOOD COUNT (AUTO) 27.2 K/uL (4.8-10.8)
[2023-12-15] MEDS: HYDROCOLLOID DRESSING TP SCH (13:05)
[2023-12-15] MEDS ORDERED: HYDROCORTISONE NA SUCC 100 MG/2 ML VIAL IV SCH ×2 (18:20→18:35)
[2023-12-15] MEDS ORDERED: VASOPRESSIN 40 UNITS in NACL 0.9% 250 ML IV SCH (19:00)
[2023-12-15] MEDS: HYDROCORTISONE NA SUCC 100 MG/2 ML VIAL IV SCH (19:05)
[2023-12-15] MEDS: VASOPRESSIN 40 UNITS in NACL 0.9% 250 ML IV SCH (20:32)
[2023-12-15] MEDS: VASOPRESSIN 20 UNITS in NACL 0.9% 250 ML IV ONE (21:43)
[2023-12-16] VITALS (41 sets, daily range): BP systolic 54–133; BP diastolic 12–78; PULSE 72–111; RESP 13–30; TEMP 96.7–100; O2SAT 92–100
[2023-12-16 04:26] LABS: BASOPHILS # (AUTO) 0.1 K/uL (0.00-0.22); BASOPHILS % (AUTO) 0.2 % (0.0-2.0); EOSINOPHILS # (AUTO) 0.1 K/uL (0-0.4); EOSINOPHILS % (AUTO) 0.2 % (0.0-4.0); LYMPHOCYTES # (AUTO) 2.2 K/uL (2.0-11.5); LYMPHOCYTES % (AUTO) 6.7 % (20.5-51.1); MEAN CORPUSCULAR HEMOGLOBIN 28 pg (27-31); MEAN CORPUSCULAR HGB CONC 32 g/dL (33-37); MEAN CORPUSCULAR VOLUME 87.3 fL (80-94); MONOCYTES # (AUTO) 0.9 K/uL (0.8-1.0); MONOCYTES % (AUTO) 2.9 % (1.7-9.3); NEUTROPHILS # (AUTO) 29.8 K/uL (1.8-7.7); PLATELET COUNT (AUTO) 349 K/uL (140-450); RED BLOOD CELL COUNT(AUTO) 2.27 MIL/uL (4.20-6.10); RED CELL DISTRIBUTION WIDTH 17.8 % (11.6-13.7)
[2023-12-16 04:30] LABS: HEMATOCRIT 19.8 % (36-52); HEMOGLOBIN 6.4 g/dL (12.0-18.0)
[2023-12-16] MEDS: HYDROCORTISONE NA SUCC 100 MG/2 ML VIAL IV SCH (04:33)
[2023-12-16] MEDS: VASOPRESSIN 20 UNITS/ML VIAL ONE (04:33)
[2023-12-16 04:39] LABS: ANION GAP 12.2 (8-16); CALCIUM 9.9 mg/dL (8.5-10.1); CARBON DIOXIDE 29.4 mmol/L (21-32); CREATININE 3.7 mg/dL (0.6-1.3); POTASSIUM 4.6 mmol/L (3.5-5.1)
[2023-12-16] MEDS ORDERED: DEXTROSE 50% 50 ML SYR IVP PRN (09:10)
[2023-12-16] MEDS: VANCOMYCIN 1,000 MG in DEXTROSE 5% 250 ML IV SCH (09:55)
[2023-12-16] MEDS: BLOOD GLUCOSE MONITORING 1 DEV DEV FS SCH (10:27)
[2023-12-16] MEDS: INSULIN LISPRO SLIDING SCALE 100 UNITS/ML VIAL SUBQ PRN (10:43)
[2023-12-16] MEDS: SODIUM FERRIC GLUCONATE 125 MG in NACL 0.9% 100 ML IV SCH (16:40)
[2023-12-16 19:06] LABS: HEMATOCRIT 23.7 % (36-52); HEMOGLOBIN 7.8 g/dL (12.0-18.0)
[2023-12-17] VITALS (30 sets, daily range): BP systolic 103–174; BP diastolic 57–109; PULSE 69–86; RESP 11–30; TEMP 97–98.3; O2SAT 91–100
[2023-12-17 04:34] LABS: BASOPHILS % (AUTO) 0.1 % (0.0-2.0); HEMATOCRIT 22.6 % (36-52); HEMOGLOBIN 7.4 g/dL (12.0-18.0); LYMPHOCYTES # (AUTO) 1.5 K/uL (2.0-11.5); LYMPHOCYTES % (AUTO) 4.4 % (20.5-51.1); MEAN CORPUSCULAR HEMOGLOBIN 29 pg (27-31); MEAN CORPUSCULAR HGB CONC 33 g/dL (33-37); MEAN CORPUSCULAR VOLUME 87.3 fL (80-94); NEUTROPHILS % (AUTO) 92.5 % (42.2-75.2); PLATELET COUNT (AUTO) 272 K/uL (140-450); RED BLOOD CELL COUNT(AUTO) 2.59 MIL/uL (4.20-6.10); RED CELL DISTRIBUTION WIDTH 17.1 % (11.6-13.7)
[2023-12-17 04:38] LABS: ANION GAP 15.4 (8-16); CALCIUM 9.5 mg/dL (8.5-10.1); CARBON DIOXIDE 26.7 mmol/L (21-32); CREATININE 3.2 mg/dL (0.6-1.3); POTASSIUM 4.1 mmol/L (3.5-5.1)
[2023-12-17 04:40] LABS: WHITE BLOOD COUNT (AUTO) 33.5 K/uL (4.8-10.8)
[2023-12-17] MEDS: MIDODRINE 5 MG TAB ONE (05:43)
[2023-12-17] MEDS: MIDODRINE 5 MG TAB GT SCH (06:23)
[2023-12-17] MEDS ORDERED: MIDODRINE 5 MG TAB PO SCH (07:00)
[2023-12-17] MEDS: INSULIN LANTUS 100 UNITS/ML 10 ML VIAL SUBQ SCH (11:01)
[2023-12-17 11:04] LABS: BLOOD GAS HCO3 21.7 mmol/L (22-26); BLOOD GAS PCO2 27.7 mmHg (35-45); BLOOD GAS PH 7.511 (7.35-7.45); BLOOD GAS PO2 58.5 mmHg (75-100)
[2023-12-17 11:05] LABS: BLOOD GAS BASE EXCESS -0.7 mmol/L (-2.0-2.0); BLOOD GAS O2 SAT% 91.7 % (92.0-98.5)
[2023-12-17 12:27] LABS: HEMATOCRIT 23.5 % (36-52); HEMOGLOBIN 7.7 g/dL (12.0-18.0)
[2023-12-17] MEDS ORDERED: FLUCONAZOLE 200 MG/NS PREMIX 100 ML IV SCH (17:55)
[2023-12-18] VITALS (17 sets, daily range): BP systolic 99–165; BP diastolic 56–102; PULSE 70–93; RESP 18–32; TEMP 96–97.9; O2SAT 95–100
[2023-12-18 07:41] LABS: HEMATOCRIT 30.7 % (36-52); HEMOGLOBIN 10.1 g/dL (12.0-18.0); MEAN CORPUSCULAR HEMOGLOBIN 29 pg (27-31); MEAN CORPUSCULAR HGB CONC 33 g/dL (33-37); MEAN CORPUSCULAR VOLUME 87.9 fL (80-94); PLATELET COUNT (AUTO) 314 K/uL (140-450); RED BLOOD CELL COUNT(AUTO) 3.49 MIL/uL (4.20-6.10); RED CELL DISTRIBUTION WIDTH 16.5 % (11.6-13.7)
[2023-12-18 07:54] LABS: WHITE BLOOD COUNT (AUTO) 41.6 K/uL (4.8-10.8)
[2023-12-18 08:22] LABS: BASOPHILS % (MANUAL) 0 % (0-2); EOSINOPHILS % (MANUAL) 0 % (0-4); LYMPHOCYTES % (MANUAL) 4 % (20-46); METAMYELOCYTES % 2 % (0-0); MONOCYTES % (MANUAL) 4 % (5-12); MYELOCYTES % 7 % (0-0)
[2023-12-18 08:23] LABS: PLATELET ESTIMATE ADEQUATE
[2023-12-18 08:41] LABS: ANION GAP 17.5 (8-16); CALCIUM 9.1 mg/dL (8.5-10.1); CARBON DIOXIDE 23.9 mmol/L (21-32); CREATININE 3.5 mg/dL (0.6-1.3); POTASSIUM 4.4 mmol/L (3.5-5.1)
[2023-12-18] MEDS: VANCOMYCIN 1,000 MG in DEXTROSE 5% 250 ML IV SCH (10:17)
[2023-12-18 12:36] LABS: LACTIC ACID 2.9 mmol/L (0.4-2.0)
[2023-12-18] MEDS ORDERED: ALBUTEROL SULFATE/IPRATROPIU 3 ML SOL IH PRN (13:00)
[2023-12-18] MEDS: ALBUTEROL SULFATE/IPRATROPIU 3 ML SOL IH SCH (13:11)
[2023-12-18] MEDS: ALBUTEROL SULFATE/IPRATROPIU 3 ML SOL IH ONE (13:11)
[2023-12-19] VITALS (15 sets, daily range): BP systolic 119–138; BP diastolic 55–98; PULSE 77–102; RESP 20–35; TEMP 97–98.3; O2SAT 95–100
[2023-12-19 06:52] LABS: HEMATOCRIT 35.4 % (36-52); HEMOGLOBIN 11.4 g/dL (12.0-18.0); LYMPHOCYTES # (AUTO) 2.4 K/uL (2.0-11.5); LYMPHOCYTES % (AUTO) 4.4 % (20.5-51.1); MEAN CORPUSCULAR HEMOGLOBIN 28 pg (27-31); MEAN CORPUSCULAR HGB CONC 32 g/dL (33-37); MEAN CORPUSCULAR VOLUME 87.6 fL (80-94); MONOCYTES # (AUTO) 1.8 K/uL (0.8-1.0); MONOCYTES % (AUTO) 3.2 % (1.7-9.3); NEUTROPHILS # (AUTO) 51.3 K/uL (1.8-7.7); NEUTROPHILS % (AUTO) 92.4 % (42.2-75.2); PLATELET COUNT (AUTO) 390 K/uL (140-450); RED BLOOD CELL COUNT(AUTO) 4.04 MIL/uL (4.20-6.10); RED CELL DISTRIBUTION WIDTH 16.9 % (11.6-13.7)
[2023-12-19] MEDS ORDERED: NEOSTIGMINE 1:1000 10 MG/10 ML VIAL ONE (07:15)
[2023-12-19] MEDS ORDERED: SEVOFLURANE 250 ML BTL INH ONE (07:15)
[2023-12-19] MEDS ORDERED: GLYCOPYRROLATE 0.2 MG/ML VIAL ONE (07:15)
[2023-12-19] MEDS: LIDOCAINE 2% 1000 MG/50 ML VIAL INJ ONE (07:16)
[2023-12-19] MEDS: BUPIVACAINE-MPF 0.25% 30 ML VIAL INJ ONE (07:16)
[2023-12-19 07:17] LABS: ANION GAP 18.4 (8-16); CALCIUM 9.6 mg/dL (8.5-10.1); CARBON DIOXIDE 23.3 mmol/L (21-32); POTASSIUM 4.7 mmol/L (3.5-5.1)
[2023-12-19 07:18] LABS: WHITE BLOOD COUNT (AUTO) 55.6 K/uL (4.8-10.8)
[2023-12-19] MEDS: fentaNYL citrate 0.05 MG/ML VIAL ONE (07:34)
[2023-12-19] MEDS: ROCURONIUM 50 MG/5 ML VIAL IV ONE (07:42)
[2023-12-19] MEDS ORDERED: HYDROmorphone 1 MG/ML AMP IVP PRN (08:20)
[2023-12-19] MEDS ORDERED: ONDANSETRON 4 MG/2 ML VIAL IVP PRN (08:20)
[2023-12-19] MEDS: FLUCONAZOLE 200 MG/NS PREMIX 100 ML IV SCH (09:39)
[2023-12-20] VITALS (15 sets, daily range): BP systolic 103–132; BP diastolic 62–85; PULSE 74–97; RESP 16–29; TEMP 97.4–98; O2SAT 99–100
[2023-12-20 07:11] LABS: HEMATOCRIT 33.1 % (36-52); HEMOGLOBIN 10.6 g/dL (12.0-18.0); MEAN CORPUSCULAR HEMOGLOBIN 29 pg (27-31); MEAN CORPUSCULAR HGB CONC 32 g/dL (33-37); MEAN CORPUSCULAR VOLUME 89.8 fL (80-94); PLATELET COUNT (AUTO) 345 K/uL (140-450); RED BLOOD CELL COUNT(AUTO) 3.69 MIL/uL (4.20-6.10)
[2023-12-20 07:17] LABS: WHITE BLOOD COUNT (AUTO) 49.9 K/uL (4.8-10.8)
[2023-12-20 07:36] LABS: CALCIUM 8.4 mg/dL (8.5-10.1); CARBON DIOXIDE 23.5 mmol/L (21-32); CREATININE 3.4 mg/dL (0.6-1.3); POTASSIUM 4.5 mmol/L (3.5-5.1)
[2023-12-20 08:00] LABS: LYMPHOCYTES % (MANUAL) 3 % (20-46); MONOCYTES % (MANUAL) 4 % (5-12)
[2023-12-20 08:04] LABS: METAMYELOCYTES % 5 % (0-0)
[2023-12-20 08:05] LABS: PLATELET ESTIMATE ADEQUATE
[2023-12-20 08:06] LABS: ANISOCYTOSIS 1+
[2023-12-20 08:09] LABS: POLYCHROMASIA 1+
[2023-12-20 08:10] LABS: MYELOCYTES % 6 % (0-0)
[2023-12-21] VITALS (14 sets, daily range): BP systolic 106–134; BP diastolic 62–77; PULSE 82–100; RESP 16–29; TEMP 97.3–98.3; O2SAT 93–100
[2023-12-21 09:46] LABS: BASOPHILS # (AUTO) 0.2 K/uL (0.00-0.22); BASOPHILS % (AUTO) 0.4 % (0.0-2.0); HEMATOCRIT 28.5 % (36-52); HEMOGLOBIN 9.2 g/dL (12.0-18.0); LYMPHOCYTES # (AUTO) 1.8 K/uL (2.0-11.5); LYMPHOCYTES % (AUTO) 4.1 % (20.5-51.1); MEAN CORPUSCULAR HEMOGLOBIN 29 pg (27-31); MEAN CORPUSCULAR HGB CONC 32 g/dL (33-37); MEAN CORPUSCULAR VOLUME 89.4 fL (80-94); MONOCYTES # (AUTO) 1.2 K/uL (0.8-1.0); MONOCYTES % (AUTO) 2.8 % (1.7-9.3); NEUTROPHILS # (AUTO) 40.5 K/uL (1.8-7.7); NEUTROPHILS % (AUTO) 92.7 % (42.2-75.2); PLATELET COUNT (AUTO) 331 K/uL (140-450); RED BLOOD CELL COUNT(AUTO) 3.19 MIL/uL (4.20-6.10); RED CELL DISTRIBUTION WIDTH 17.1 % (11.6-13.7)
[2023-12-21 09:57] LABS: ALBUMIN 2.4 g/dL (3.4-5.0); ANION GAP 21.2 (8-16); CALCIUM 8.2 mg/dL (8.5-10.1); CARBON DIOXIDE 21.4 mmol/L (21-32); CREATININE 3.9 mg/dL (0.6-1.3); POTASSIUM 4.6 mmol/L (3.5-5.1); TOTAL BILIRUBIN 0.4 mg/dL (0.0-1.0); TOTAL PROTEIN, SERUM 6.2 g/dL (6.4-8.2)
[2023-12-21 10:00] LABS: WHITE BLOOD COUNT (AUTO) 43.7 K/uL (4.8-10.8)
[2023-12-21] MEDS: VANCOMYCIN 1,000 MG in DEXTROSE 5% 250 ML IV SCH (22:11)
[2023-12-22] VITALS (15 sets, daily range): BP systolic 87–116; BP diastolic 53–69; PULSE 77–92; RESP 17–27; TEMP 96.5–98.6; O2SAT 96–100
[2023-12-22] MEDS: PIPERACILLIN/TAZOBACTAM 2.25 GM in DEXTROSE 5% 50 ML IV SCH (05:15)
[2023-12-22] MEDS: PIPERACILLIN/TAZOBACTAM 2.25 GM VIAL IV ONE (05:15)
[2023-12-22 10:57] LABS: BASOPHILS # (AUTO) 0.1 K/uL (0.00-0.22); BASOPHILS % (AUTO) 0.2 % (0.0-2.0); HEMATOCRIT 25.4 % (36-52); HEMOGLOBIN 8.1 g/dL (12.0-18.0); LYMPHOCYTES # (AUTO) 2.1 K/uL (2.0-11.5); LYMPHOCYTES % (AUTO) 4.5 % (20.5-51.1); MEAN CORPUSCULAR HEMOGLOBIN 29 pg (27-31); MEAN CORPUSCULAR HGB CONC 32 g/dL (33-37); MONOCYTES # (AUTO) 1.3 K/uL (0.8-1.0); MONOCYTES % (AUTO) 2.8 % (1.7-9.3); NEUTROPHILS # (AUTO) 42.9 K/uL (1.8-7.7); NEUTROPHILS % (AUTO) 92.5 % (42.2-75.2); PLATELET COUNT (AUTO) 322 K/uL (140-450); RED BLOOD CELL COUNT(AUTO) 2.83 MIL/uL (4.20-6.10); RED CELL DISTRIBUTION WIDTH 17.4 % (11.6-13.7)
[2023-12-22 11:07] LABS: WHITE BLOOD COUNT (AUTO) 46.4 K/uL (4.8-10.8)
[2023-12-22] MEDS: HYDROCORTISONE NA SUCC 100 MG/2 ML VIAL IV SCH (21:01)
[2023-12-23] VITALS (14 sets, daily range): BP systolic 101–147; BP diastolic 56–87; PULSE 83–98; RESP 19–27; TEMP 98–98.5; O2SAT 100
[2023-12-23 06:55] LABS: HEMATOCRIT 25.1 % (36-52); HEMOGLOBIN 8.2 g/dL (12.0-18.0); MEAN CORPUSCULAR HEMOGLOBIN 29 pg (27-31); MEAN CORPUSCULAR HGB CONC 33 g/dL (33-37); MEAN CORPUSCULAR VOLUME 89.6 fL (80-94); PLATELET COUNT (AUTO) 369 K/uL (140-450); RED CELL DISTRIBUTION WIDTH 17.9 % (11.6-13.7)
[2023-12-23 07:19] LABS: ALBUMIN 2.4 g/dL (3.4-5.0); ANION GAP 19.6 (8-16); CALCIUM 7.9 mg/dL (8.5-10.1); CARBON DIOXIDE 22.9 mmol/L (21-32); CREATININE 3.6 mg/dL (0.6-1.3); MAGNESIUM 2.3 mg/dL (1.8-2.4); POTASSIUM 4.5 mmol/L (3.5-5.1); TOTAL BILIRUBIN 0.4 mg/dL (0.0-1.0); TOTAL PROTEIN, SERUM 6.3 g/dL (6.4-8.2)
[2023-12-23 08:13] LABS: WHITE BLOOD COUNT (AUTO) 49.9 K/uL (4.8-10.8)
[2023-12-23 08:18] LABS: LYMPHOCYTES % (MANUAL) 6 % (20-46); METAMYELOCYTES % 6 % (0-0); MONOCYTES % (MANUAL) 3 % (5-12); MYELOCYTES % 3 % (0-0); PLATELET ESTIMATE ADEQUATE
[2023-12-23 08:19] LABS: POLYCHROMASIA 1+
[2023-12-23] MEDS: EPOETIN ALFA-EPBX 10,000 UNITS/ML VIAL IV SCH (09:51)
[2023-12-24] VITALS (14 sets, daily range): BP systolic 86–149; BP diastolic 56–89; PULSE 82–94; RESP 18–26; TEMP 96.2–98.6; O2SAT 95–100
[2023-12-24 07:27] LABS: BASOPHILS % (AUTO) 0.1 % (0.0-2.0); EOSINOPHILS # (AUTO) 0.2 K/uL (0-0.4); EOSINOPHILS % (AUTO) 0.5 % (0.0-4.0); HEMOGLOBIN 8.3 g/dL (12.0-18.0); LYMPHOCYTES # (AUTO) 2.9 K/uL (2.0-11.5); LYMPHOCYTES % (AUTO) 9.4 % (20.5-51.1); MEAN CORPUSCULAR HEMOGLOBIN 30 pg (27-31); MEAN CORPUSCULAR HGB CONC 33 g/dL (33-37); MONOCYTES % (AUTO) 3.1 % (1.7-9.3); NEUTROPHILS # (AUTO) 27.1 K/uL (1.8-7.7); NEUTROPHILS % (AUTO) 86.9 % (42.2-75.2); PLATELET COUNT (AUTO) 336 K/uL (140-450); RED BLOOD CELL COUNT(AUTO) 2.78 MIL/uL (4.20-6.10); RED CELL DISTRIBUTION WIDTH 18.5 % (11.6-13.7)
[2023-12-24 07:43] LABS: WHITE BLOOD COUNT (AUTO) 31.2 K/uL (4.8-10.8)
[2023-12-24] MEDS: LACTOBACILLUS RHAMNOSUS GG 1 EACH CAP PEG SCH (08:58)
[2023-12-24 11:48] LABS: ALBUMIN 2.4 g/dL (3.4-5.0); ANION GAP 21.2 (8-16); CALCIUM 7.5 mg/dL (8.5-10.1); CARBON DIOXIDE 21.6 mmol/L (21-32); CREATININE 2.9 mg/dL (0.6-1.3); POTASSIUM 3.8 mmol/L (3.5-5.1); TOTAL BILIRUBIN 0.3 mg/dL (0.0-1.0)
[2023-12-24] MEDS: VANCOMYCIN 1,000 MG in DEXTROSE 5% 250 ML IV SCH (14:41)
[2023-12-25] VITALS (15 sets, daily range): BP systolic 109–136; BP diastolic 67–83; PULSE 85–102; RESP 16–30; TEMP 96.3–98.5; O2SAT 97–100
[2023-12-25 07:00] LABS: HEMATOCRIT 25.2 % (36-52); HEMOGLOBIN 8.3 g/dL (12.0-18.0); MEAN CORPUSCULAR HEMOGLOBIN 30 pg (27-31); MEAN CORPUSCULAR HGB CONC 33 g/dL (33-37); MEAN CORPUSCULAR VOLUME 89.3 fL (80-94); PLATELET COUNT (AUTO) 382 K/uL (140-450); RED BLOOD CELL COUNT(AUTO) 2.82 MIL/uL (4.20-6.10); RED CELL DISTRIBUTION WIDTH 19.7 % (11.6-13.7)
[2023-12-25 07:33] LABS: ALBUMIN 2.4 g/dL (3.4-5.0); ANION GAP 19.1 (8-16); CALCIUM 7.8 mg/dL (8.5-10.1); CARBON DIOXIDE 22.8 mmol/L (21-32); CREATININE 3.3 mg/dL (0.6-1.3); MAGNESIUM 2.1 mg/dL (1.8-2.4); POTASSIUM 3.9 mmol/L (3.5-5.1); TOTAL BILIRUBIN 0.3 mg/dL (0.0-1.0); TOTAL PROTEIN, SERUM 6.2 g/dL (6.4-8.2)
[2023-12-25 08:36] LABS: WHITE BLOOD COUNT (AUTO) 34.9 K/uL (4.8-10.8)
[2023-12-25 09:15] LABS: LYMPHOCYTES % (MANUAL) 5 % (20-46); MONOCYTES % (MANUAL) 7 % (5-12)
[2023-12-25 09:16] LABS: METAMYELOCYTES % 6 % (0-0); MYELOCYTES % 5 % (0-0)
[2023-12-25 09:17] LABS: ANISOCYTOSIS 1+; PLATELET ESTIMATE ADEQUATE
[2023-12-25] MEDS: CRUSHER, PILL MC ONE (21:08)
[2023-12-26] VITALS (14 sets, daily range): BP systolic 105–138; BP diastolic 64–82; PULSE 76–99; RESP 16–26; TEMP 96.2–98.6; O2SAT 97–100
[2023-12-26 07:46] LABS: BASOPHILS % (AUTO) 0.1 % (0.0-2.0); EOSINOPHILS # (AUTO) 0.1 K/uL (0-0.4); EOSINOPHILS % (AUTO) 0.3 % (0.0-4.0); HEMATOCRIT 25.1 % (36-52); HEMOGLOBIN 8.3 g/dL (12.0-18.0); LYMPHOCYTES # (AUTO) 1.1 K/uL (2.0-11.5); LYMPHOCYTES % (AUTO) 4.2 % (20.5-51.1); MEAN CORPUSCULAR HEMOGLOBIN 30 pg (27-31); MEAN CORPUSCULAR HGB CONC 33 g/dL (33-37); MEAN CORPUSCULAR VOLUME 90.5 fL (80-94); MONOCYTES # (AUTO) 0.5 K/uL (0.8-1.0); MONOCYTES % (AUTO) 1.7 % (1.7-9.3); NEUTROPHILS # (AUTO) 25.8 K/uL (1.8-7.7); NEUTROPHILS % (AUTO) 93.7 % (42.2-75.2); PLATELET COUNT (AUTO) 359 K/uL (140-450); RED BLOOD CELL COUNT(AUTO) 2.78 MIL/uL (4.20-6.10); RED CELL DISTRIBUTION WIDTH 19.3 % (11.6-13.7)
[2023-12-26 07:59] LABS: ALBUMIN 2.3 g/dL (3.4-5.0); CALCIUM 7.8 mg/dL (8.5-10.1); CARBON DIOXIDE 23.1 mmol/L (21-32); CREATININE 3.3 mg/dL (0.6-1.3); POTASSIUM 4.1 mmol/L (3.5-5.1); TOTAL BILIRUBIN 0.3 mg/dL (0.0-1.0); TOTAL PROTEIN, SERUM 6.2 g/dL (6.4-8.2)
[2023-12-26 08:02] LABS: WHITE BLOOD COUNT (AUTO) 27.6 K/uL (4.8-10.8)
[2023-12-27] VITALS (22 sets, daily range): BP systolic 90–130; BP diastolic 58–73; PULSE 86–112; RESP 18–31; TEMP 97.6–98.7; O2SAT 95–100
[2023-12-27 07:15] LABS: HEMATOCRIT 23.4 % (36-52); HEMOGLOBIN 7.7 g/dL (12.0-18.0); MEAN CORPUSCULAR HEMOGLOBIN 30 pg (27-31); MEAN CORPUSCULAR HGB CONC 33 g/dL (33-37); MEAN CORPUSCULAR VOLUME 91.1 fL (80-94); PLATELET COUNT (AUTO) 324 K/uL (140-450); RED BLOOD CELL COUNT(AUTO) 2.57 MIL/uL (4.20-6.10); RED CELL DISTRIBUTION WIDTH 20.5 % (11.6-13.7); WHITE BLOOD COUNT (AUTO) 22.4 K/uL (4.8-10.8)
[2023-12-27 07:28] LABS: ALBUMIN 2.2 g/dL (3.4-5.0); CALCIUM 7.8 mg/dL (8.5-10.1); CARBON DIOXIDE 26.6 mmol/L (21-32); CREATININE 2.5 mg/dL (0.6-1.3); POTASSIUM 3.6 mmol/L (3.5-5.1); TOTAL BILIRUBIN 0.2 mg/dL (0.0-1.0); TOTAL PROTEIN, SERUM 6.1 g/dL (6.4-8.2)
[2023-12-27 09:11] LABS: LYMPHOCYTES % (MANUAL) 9 % (20-46); MONOCYTES % (MANUAL) 2 % (5-12)
[2023-12-27 09:12] LABS: ANISOCYTOSIS 1+; PLATELET ESTIMATE ADEQUATE; POLYCHROMASIA 1+; STOMATOCYTES 1+
[2023-12-27] MEDS: ALBUTEROL SULFATE/IPRATROPIU 3 ML SOL IH SCH (11:45)
[2023-12-27] MEDS ORDERED: ONDANSETRON 4 MG/2 ML VIAL IVP PRN (18:30)
[2023-12-27] MEDS: METOCLOPRAMIDE 10 MG/2 ML INJ VIAL IVP SCH (18:37)
[2023-12-28] VITALS (20 sets, daily range): BP systolic 92–117; BP diastolic 58–71; PULSE 80–107; RESP 18–26; TEMP 97–98.7; O2SAT 92–100
[2023-12-28] MEDS ORDERED: POTASSIUM CHLORIDE 20 MEQ in DEXTROSE 5% 1,000 ML IV SCH (04:45)
[2023-12-28] MEDS ORDERED: bisacodyL 10 MG SUPP RC PRN (04:45)
[2023-12-28 07:05] LABS: EOSINOPHILS # (AUTO) 0.1 K/uL (0-0.4); LYMPHOCYTES # (AUTO) 1.7 K/uL (2.0-11.5); MEAN CORPUSCULAR VOLUME 92.2 fL (80-94)
[2023-12-28 07:11] LABS: BASOPHILS % (AUTO) 0.1 % (0.0-2.0); EOSINOPHILS % (AUTO) 0.3 % (0.0-4.0); HEMATOCRIT 21.6 % (36-52); HEMOGLOBIN 7.2 g/dL (12.0-18.0); LYMPHOCYTES % (AUTO) 5.9 % (20.5-51.1); MEAN CORPUSCULAR HEMOGLOBIN 31 pg (27-31); MEAN CORPUSCULAR HGB CONC 33 g/dL (33-37); MONOCYTES # (AUTO) 0.7 K/uL (0.8-1.0); MONOCYTES % (AUTO) 2.6 % (1.7-9.3); NEUTROPHILS # (AUTO) 26.6 K/uL (1.8-7.7); NEUTROPHILS % (AUTO) 91.1 % (42.2-75.2); PLATELET COUNT (AUTO) 285 K/uL (140-450); RED BLOOD CELL COUNT(AUTO) 2.34 MIL/uL (4.20-6.10); RED CELL DISTRIBUTION WIDTH 21.4 % (11.6-13.7)
[2023-12-28 07:15] LABS: WHITE BLOOD COUNT (AUTO) 29.2 K/uL (4.8-10.8)
[2023-12-28 08:09] LABS: ALBUMIN 2.2 g/dL (3.4-5.0); ANION GAP 18.8 (8-16); CALCIUM 7.8 mg/dL (8.5-10.1); CARBON DIOXIDE 24.3 mmol/L (21-32); CREATININE 2.9 mg/dL (0.6-1.3); POTASSIUM 4.1 mmol/L (3.5-5.1); TOTAL BILIRUBIN 0.3 mg/dL (0.0-1.0)
[2023-12-28] MEDS ORDERED: DOCUSATE 100 MG/10 ML UDC GT SCH (09:00)
[2023-12-28] MEDS: VANCOMYCIN 750 MG in DEXTROSE 5% 250 ML IV SCH (17:17)
[2023-12-29] VITALS (20 sets, daily range): BP systolic 97–131; BP diastolic 64–85; PULSE 83–109; RESP 18–28; TEMP 96.8–97.9; O2SAT 95–100
[2023-12-29 07:09] LABS: BASOPHILS % (AUTO) 0.2 % (0.0-2.0); EOSINOPHILS % (AUTO) 0.2 % (0.0-4.0); HEMOGLOBIN 8.4 g/dL (12.0-18.0); LYMPHOCYTES # (AUTO) 1.3 K/uL (2.0-11.5); LYMPHOCYTES % (AUTO) 6.5 % (20.5-51.1); MEAN CORPUSCULAR HEMOGLOBIN 31 pg (27-31); MEAN CORPUSCULAR HGB CONC 34 g/dL (33-37); MEAN CORPUSCULAR VOLUME 90.6 fL (80-94); MONOCYTES # (AUTO) 0.7 K/uL (0.8-1.0); MONOCYTES % (AUTO) 3.7 % (1.7-9.3); NEUTROPHILS # (AUTO) 17.8 K/uL (1.8-7.7); NEUTROPHILS % (AUTO) 89.4 % (42.2-75.2); PLATELET COUNT (AUTO) 249 K/uL (140-450); RED BLOOD CELL COUNT(AUTO) 2.76 MIL/uL (4.20-6.10); RED CELL DISTRIBUTION WIDTH 19.4 % (11.6-13.7); WHITE BLOOD COUNT (AUTO) 19.9 K/uL (4.8-10.8)
[2023-12-29 07:44] LABS: ALBUMIN 2.2 g/dL (3.4-5.0); ANION GAP 15.1 (8-16); CALCIUM 7.7 mg/dL (8.5-10.1); CARBON DIOXIDE 26.3 mmol/L (21-32); CREATININE 2.3 mg/dL (0.6-1.3); MAGNESIUM 1.9 mg/dL (1.8-2.4); POTASSIUM 3.4 mmol/L (3.5-5.1); TOTAL BILIRUBIN 0.4 mg/dL (0.0-1.0); TOTAL PROTEIN, SERUM 6.1 g/dL (6.4-8.2)
[2023-12-29] MEDS: POLYETHYLENE GLYCOL 17 GM/PKT PO SCH (08:43)
[2023-12-29] MEDS: POTASSIUM CHLORIDE 20% 40 MEQ/15 ML UDC GT SCH (10:38)
[2023-12-29] MEDS ORDERED: POTASSIUM CHLORIDE 10 MEQ TABER PO SCH (11:00)
[2023-12-29] MEDS: GAUZE TP SCH (12:06)
[2023-12-29] MEDS ORDERED: LACT10CA PEG (12:18)
[2023-12-29] MEDS ORDERED: Therahoney Gel TP ×2 (12:18)
[2023-12-29] MEDS ORDERED: ALBU3SOL83 IH ×2 (12:18)
[2023-12-29] MEDS ORDERED: PIPE50SO5 IV (12:18)
[2023-12-29] MEDS ORDERED: HUMSLIDE SUBQ (12:18)
[2023-12-29] MEDS ORDERED: METO5SOL19 GT (12:18)
[2023-12-29] MEDS ORDERED: LANTUS SUBQ (12:18)
[2023-12-29] MEDS ORDERED: POLY17PD46 PO (12:18)
[2023-12-29] MEDS ORDERED: METH4TAB1 PO (12:31)
[2023-12-29] MEDS ORDERED: VANC1VIA34 MC (12:34)
[2023-12-30] VITALS (14 sets, daily range): BP systolic 105–135; BP diastolic 71–91; PULSE 77–109; RESP 19–27; TEMP 96.8–97.8; O2SAT 94–100
[2023-12-30] MEDS: Z-GUARD PASTE TP ONE (02:46)
[2023-12-30] MEDS: Z-GUARD PASTE TP PRN (02:48)
[2023-12-30 07:34] LABS: BASOPHILS % (AUTO) 0.2 % (0.0-2.0); EOSINOPHILS # (AUTO) 0.2 K/uL (0-0.4); HEMATOCRIT 26.9 % (36-52); HEMOGLOBIN 9.1 g/dL (12.0-18.0); LYMPHOCYTES # (AUTO) 1.3 K/uL (2.0-11.5); LYMPHOCYTES % (AUTO) 7.8 % (20.5-51.1); MEAN CORPUSCULAR HEMOGLOBIN 31 pg (27-31); MEAN CORPUSCULAR HGB CONC 34 g/dL (33-37); MEAN CORPUSCULAR VOLUME 91.1 fL (80-94); MONOCYTES # (AUTO) 0.6 K/uL (0.8-1.0); MONOCYTES % (AUTO) 3.5 % (1.7-9.3); NEUTROPHILS # (AUTO) 14.9 K/uL (1.8-7.7); NEUTROPHILS % (AUTO) 87.5 % (42.2-75.2); PLATELET COUNT (AUTO) 246 K/uL (140-450); RED BLOOD CELL COUNT(AUTO) 2.96 MIL/uL (4.20-6.10); RED CELL DISTRIBUTION WIDTH 20.1 % (11.6-13.7)
[2023-12-30 08:04] LABS: ALBUMIN 2.2 g/dL (3.4-5.0); ANION GAP 15.9 (8-16); CALCIUM 7.7 mg/dL (8.5-10.1); CARBON DIOXIDE 24.9 mmol/L (21-32); CREATININE 2.6 mg/dL (0.6-1.3); POTASSIUM 3.8 mmol/L (3.5-5.1); TOTAL BILIRUBIN 0.4 mg/dL (0.0-1.0); TOTAL PROTEIN, SERUM 6.1 g/dL (6.4-8.2)
[2023-12-30] MEDS: METOCLOPRAMIDE 10 MG/10 ML SYRP UDC GT SCH (12:13)
[2023-12-30] MEDS ORDERED: VANCOMYCIN HCL 750 MG in DEXTROSE 5% 250 ML IV SCH (21:00)
[2023-12-31] MEDS ORDERED: SODIUM PHOSPHATE 118 ML ENEM RC ONE (09:00)
== END 2023-12-30 16:59 | DRG 710 ==
LOC: MED 19:46 → MMU 23:21 → MIC 12-13 01:30 → MTU 12-18 21:13
PROVIDERS: ADMIT Student in an Organized Health Care Education/Training Program; ATTEND Student in an Organized Health Care Education/Training Program
PROC: 5A1955Z Respiratory Ventilation, Greater than 96 Consecutive Hours (ICD-10-PCS; principal; 2023-12-12)
PROC: 06HY33Z Insertion of Infusion Device into Lower Vein, Percutaneous Approach (ICD-10-PCS; 2023-12-13)
PROC: B54BZZA Ultrasonography of Right Lower Extremity Veins, Guidance (ICD-10-PCS; 2023-12-13)
PROC: 5A1D70Z Performance of Urinary Filtration, Intermittent, Less than 6 Hours Per Day (ICD-10-PCS; 2023-12-14)
PROC: 30233N1 Transfusion of Nonautologous Red Blood Cells into Peripheral Vein, Percutaneous Approach (ICD-10-PCS; 2023-12-16)
PROC: 5A1D70Z Performance of Urinary Filtration, Intermittent, Less than 6 Hours Per Day (ICD-10-PCS; 2023-12-16)
PROC: 5A1D70Z Performance of Urinary Filtration, Intermittent, Less than 6 Hours Per Day (ICD-10-PCS; 2023-12-17)
PROC: 0KBP0ZZ Excision of Left Hip Muscle, Open Approach (ICD-10-PCS; 2023-12-19)
PROC: 0QB10ZZ Excision of Sacrum, Open Approach (ICD-10-PCS; 2023-12-19)
PROC: 0KBT0ZZ Excision of Left Lower Leg Muscle, Open Approach (ICD-10-PCS; 2023-12-19)
PROC: 0KBS0ZZ Excision of Right Lower Leg Muscle, Open Approach (ICD-10-PCS; 2023-12-19)
PROC: 5A1D70Z Performance of Urinary Filtration, Intermittent, Less than 6 Hours Per Day (ICD-10-PCS; 2023-12-19)
PROC: 5A1D70Z Performance of Urinary Filtration, Intermittent, Less than 6 Hours Per Day (ICD-10-PCS; 2023-12-21)
PROC: 5A0935A Assistance with Respiratory Ventilation, Less than 24 Consecutive Hours, High Flow/Velocity Cannula (ICD-10-PCS; 2023-12-21)
PROC: 5A1D70Z Performance of Urinary Filtration, Intermittent, Less than 6 Hours Per Day (ICD-10-PCS; 2023-12-23)
PROC: 5A1D70Z Performance of Urinary Filtration, Intermittent, Less than 6 Hours Per Day (ICD-10-PCS; 2023-12-26)
PROC: 5A1D70Z Performance of Urinary Filtration, Intermittent, Less than 6 Hours Per Day (ICD-10-PCS; 2023-12-28)
PROC: 5A1D70Z Performance of Urinary Filtration, Intermittent, Less than 6 Hours Per Day (ICD-10-PCS; 2023-12-30)
DX: A41.9 Sepsis, unspecified organism (principal); J96.20 Acute and chronic respiratory failure, unspecified whether with hypoxia or hypercapnia; R65.21 Severe sepsis with septic shock; N17.0 Acute kidney failure with tubular necrosis; D61.810 Antineoplastic chemotherapy induced pancytopenia; D84.9 Immunodeficiency, unspecified; L89.154 Pressure ulcer of sacral region, stage 4; E43 Unspecified severe protein-calorie malnutrition; G93.49 Other encephalopathy; L89.223 Pressure ulcer of left hip, stage 3; J18.9 Pneumonia, unspecified organism; L89.623 Pressure ulcer of left heel, stage 3; M46.28 Osteomyelitis of vertebra, sacral and sacrococcygeal region; I12.0 Hypertensive chronic kidney disease with stage 5 chronic kidney disease or end stage renal disease; N18.6 End stage renal disease; Z20.822 Contact with and (suspected) exposure to COVID-19; J40 Bronchitis, not specified as acute or chronic; N39.0 Urinary tract infection, site not specified; E87.6 Hypokalemia; I48.91 Unspecified atrial fibrillation; I95.9 Hypotension, unspecified; D69.6 Thrombocytopenia, unspecified; E11.22 Type 2 diabetes mellitus with diabetic chronic kidney disease; L03.114 Cellulitis of left upper limb; E11.69 Type 2 diabetes mellitus with other specified complication; L03.113 Cellulitis of right upper limb; L89.613 Pressure ulcer of right heel, stage 3; Z99.2 Dependence on renal dialysis; Z93.0 Tracheostomy status; Z79.01 Long term (current) use of anticoagulants; Z68.33 Body mass index [BMI] 33.0-33.9, adult; C92.01 Acute myeloblastic leukemia, in remission; B96.4 Proteus (mirabilis) (morganii) as the cause of diseases classified elsewhere
CPT/HCPCS: 36415; 36430; 36556; 36600; 51702; 71045; 73070; 73620; 74018; 74250; 76881; 80048; 80053; 80076; 80202; 81001; 82272; 82550; 82803; 82948; 83540; 83605; 83735; 83880; 84100; 84484; 85018; 85025; 85610; 85730; 86886; 86900; 86901; 86920; 87040; 87070; 87075; 87081; 87086; 87186; 87205; 89220; 90935; 93005; 94002; 94003; 94640; 96365; 96367; 99291; C9113; J0696; J1450; J1644; J1720; J1815; J2001; J2185; J2543; J2710; J2765; J2916; J3010; J3370; J3480; J3490; J7030; J7060; J8597; P9016; Q0092; Q5106; Q9967

== ENCOUNTER 2024-01-10 15:46 | Inpatient (IN) | payer MEDICAID ==
[~2024-01-10] VITALS: Ht 172.7 cm; Wt 85.3 kg
[2024-01-10] VITALS (7 sets, daily range): BP systolic 59–151; BP diastolic 34–73; PULSE 92–107; RESP 18–29; TEMP 97.2–98.4; O2SAT 95–100
[~2024-01-10 15:46] MED LIST changes: +ALBU3SOL83 IH; -CIPR250T3 GT; -CIPR500T4 GT; +HUMSLIDE SUBQ; +LACT10CA PEG; +LANTUS SUBQ; +METH4TAB1 PO; +METO5SOL19 GT; -METR-435 GT; +PIPE50SO5 IV; +POLY17PD46 PO; +Therahoney Gel TP; +VANC1VIA34 MC
[2024-01-10] MEDS: NACL 0.9% 1,000 ML IV ONE (16:16)
[2024-01-10] MEDS ORDERED: NOREPINEPHRINE 4 MG/4 ML VIAL IV ONE ×4 (16:27→20:05)
[2024-01-10] MEDS: NOREPINEPHRINE 4 MG in DEXTROSE 5% 250 ML IV ONE (16:58)
[2024-01-10 17:13] LABS: BASOPHILS # (AUTO) 0.1 K/uL (0.00-0.22); BASOPHILS % (AUTO) 0.9 % (0.0-2.0); EOSINOPHILS # (AUTO) 0.1 K/uL (0-0.4); HEMATOCRIT 23.5 % (36-52); HEMOGLOBIN 7.8 g/dL (12.0-18.0); LYMPHOCYTES # (AUTO) 1.6 K/uL (2.0-11.5); LYMPHOCYTES % (AUTO) 12.3 % (20.5-51.1); MEAN CORPUSCULAR HEMOGLOBIN 30 pg (27-31); MEAN CORPUSCULAR HGB CONC 33 g/dL (33-37); MEAN CORPUSCULAR VOLUME 90.7 fL (80-94); MONOCYTES # (AUTO) 0.3 K/uL (0.8-1.0); MONOCYTES % (AUTO) 2.2 % (1.7-9.3); NEUTROPHILS % (AUTO) 83.6 % (42.2-75.2); PLATELET COUNT (AUTO) 247 K/uL (140-450); RED BLOOD CELL COUNT(AUTO) 2.59 MIL/uL (4.20-6.10); RED CELL DISTRIBUTION WIDTH 19.5 % (11.6-13.7); WHITE BLOOD COUNT (AUTO) 13.2 K/uL (4.8-10.8)
[2024-01-10 17:29] LABS: PARTIAL THROMBOPLASTIN TIME 34.6 secs (22-35.6); PROTHROMBIN TIME 10.5 secs (10.8-13.4)
[2024-01-10 17:38] LABS: ANION GAP 16.2 (8-16); CALCIUM 8.7 mg/dL (8.5-10.1); CARBON DIOXIDE 27.7 mmol/L (21-32); POTASSIUM 3.9 mmol/L (3.5-5.1)
[2024-01-10 17:39] LABS: ALANINE AMINOTRANSFERASE 11 U/L (12-78); ALBUMIN 1.7 g/dL (3.4-5.0); ALKALINE PHOSPHATASE 77 U/L (50-136); ASPARTATE AMINOTRANSFERASE 48 U/L (15-37); BILIRUBIN,DIRECT 0.1 mg/dL (0.0-0.3); CREATINE KINASE, TOTAL 192 U/L (39-308); FREE T4 (FREE THYROXINE) 0.24 ng/dL (0.76-1.46); LIPASE 57 U/L (16-77); THYROID STIMULATING HORMONE 102.14 uIU/mL (0.34-3.74); TOTAL BILIRUBIN 0.5 mg/dL (0.0-1.0); TOTAL PROTEIN, SERUM 6.4 g/dL (6.4-8.2)
[2024-01-10 17:43] LABS: CREATININE 5.1 mg/dL (0.6-1.3)
[2024-01-10] MEDS ORDERED: MEROPENEM 1,000 MG VIAL IV ONE (17:43)
[2024-01-10 17:46] LABS: LACTIC ACID 3.1 mmol/L (0.4-2.0)
[2024-01-10] MEDS: MEROPENEM 1,000 MG in NACL 0.9% 50 ML IV ONE (17:58)
[2024-01-10] MEDS ORDERED: ONDANSETRON 4 MG/2 ML VIAL IVP PRN (18:30)
[2024-01-10] MEDS ORDERED: LORazepam 2 MG/ML VIAL IVP PRN (18:30)
[2024-01-10] MEDS ORDERED: VANCOMYCIN PER PHARMACY MC PRN (18:35)
[2024-01-10] MEDS ORDERED: VANCOMYCIN 1,000 MG VIAL ONE (19:00)
[2024-01-10] MEDS: VANCOMYCIN 1,000 MG in DEXTROSE 5% 250 ML IV ONE (19:06)
[2024-01-10] MEDS: NACL 0.9% 1,000 ML IV SCH (19:09)
[2024-01-10] MEDS ORDERED: DEXTROSE 50% 50 ML SYR IVP PRN (19:45)
[2024-01-10] MEDS: aMILoride 5 MG TAB GT SCH (21:00)
[2024-01-10] MEDS ORDERED: PIPERACILLIN/TAZOBACTAM 3.375 GM in DEXTROSE 5% 50 ML IV SCH (21:00)
[2024-01-10] MEDS: MIDODRINE 5 MG TAB PO SCH (21:00)
[2024-01-10] MEDS: DILTIAZEM 60 MG TAB GT SCH (21:00)
[2024-01-10] MEDS: AMIODARONE 200 MG TAB PO SCH (21:00)
[2024-01-10] MEDS: DOCUSATE SODIUM 100 MG GELCAP PO SCH (21:00)
[2024-01-10] MEDS ORDERED: PIPERACILLIN/TAZOBACTAM 2.25 GM VIAL IV ONE (21:51)
[2024-01-10] MEDS: PIPERACILLIN/TAZOBACTAM 2.25 GM in DEXTROSE 5% 50 ML IV SCH (21:55)
[2024-01-10] MEDS: HYDROCORTISONE NA SUCC 100 MG/2 ML VIAL IV SCH (21:56)
[2024-01-10] MEDS: METOCLOPRAMIDE 10 MG/10 ML SYRP UDC GT SCH (21:56)
[2024-01-10] MEDS: BLOOD GLUCOSE MONITORING 1 DEV DEV FS SCH (22:06)
[2024-01-10] MEDS: NOREPINEPHRINE 4 MG/4 ML VIAL IV ONE (22:10)
[2024-01-10] MEDS: NOREPINEPHRINE 16 MG in DEXTROSE 5% 250 ML IV PRN (22:21)
[2024-01-11] VITALS (31 sets, daily range): BP systolic 101–149; BP diastolic 45–84; PULSE 61–103; RESP 14–25; TEMP 96.9–97.4; O2SAT 95–100
[2024-01-11] MEDS: ALBUTEROL SULFATE/IPRATROPIU 3 ML SOL IH SCH (00:55)
[2024-01-11] MEDS: LANSOPRAZOLE 30 MG CAPDR PO SCH (06:30)
[2024-01-11] MEDS: ASCORBIC ACID 500 MG TAB GT SCH (08:44)
[2024-01-11] MEDS: ZINC SULF 220 MG CAP GT SCH (08:44)
[2024-01-11] MEDS: LACTOBACILLUS RHAMNOSUS GG 1 EACH CAP PEG SCH (08:44)
[2024-01-11] MEDS: VIT-B COMP/VIT-C/FOLIC ACID 1 TAB GT SCH (08:45)
[2024-01-11] MEDS: SEVELAMER CARBONATE 0.8 GM GT SCH (08:46)
[2024-01-11] MEDS: INSULIN LISPRO SLIDING SCALE 100 UNITS/ML VIAL SUBQ PRN (08:51)
[2024-01-11] MEDS: INSULIN LANTUS 100 UNITS/ML 10 ML VIAL SUBQ SCH (08:51)
[2024-01-11] MEDS ORDERED: ZINC SULF 220 MG CAP GT SCH (09:00)
[2024-01-11] MEDS ORDERED: SEVELAMER CARBONATE 800 MG TAB PO SCH (09:00)
[2024-01-11] MEDS ORDERED: PANTOPRAZOLE 40 MG TABEC PO SCH (09:00)
[2024-01-11] MEDS ORDERED: THERAHONEY GEL 42.5 GM TP PRN (15:05)
[2024-01-11] MEDS ORDERED: GAUZE TP PRN (15:05)
[2024-01-11] MEDS: DOCUSATE 100 MG/10 ML UDC GT SCH (21:13)
[2024-01-12] VITALS (28 sets, daily range): BP systolic 87–135; BP diastolic 52–77; PULSE 64–82; RESP 12–22; TEMP 97.2–98.5; O2SAT 98–100
[2024-01-12 05:16] LABS: LYMPHOCYTES # (AUTO) 0.7 K/uL (2.0-11.5); LYMPHOCYTES % (AUTO) 4.8 % (20.5-51.1); MEAN CORPUSCULAR HEMOGLOBIN 30 pg (27-31); MEAN CORPUSCULAR HGB CONC 33 g/dL (33-37); MEAN CORPUSCULAR VOLUME 90.9 fL (80-94); MONOCYTES # (AUTO) 0.4 K/uL (0.8-1.0); MONOCYTES % (AUTO) 2.9 % (1.7-9.3); NEUTROPHILS # (AUTO) 13.7 K/uL (1.8-7.7); NEUTROPHILS % (AUTO) 92.3 % (42.2-75.2); PLATELET COUNT (AUTO) 214 K/uL (140-450); RED BLOOD CELL COUNT(AUTO) 2.08 MIL/uL (4.20-6.10); RED CELL DISTRIBUTION WIDTH 18.9 % (11.6-13.7); WHITE BLOOD COUNT (AUTO) 14.9 K/uL (4.8-10.8)
[2024-01-12 05:29] LABS: HEMOGLOBIN 6.3 g/dL (12.0-18.0)
[2024-01-12 05:30] LABS: HEMATOCRIT 18.9 % (36-52)
[2024-01-12 05:56] LABS: ANION GAP 14.2 (8-16); CALCIUM 8.4 mg/dL (8.5-10.1); CARBON DIOXIDE 26.5 mmol/L (21-32); CREATININE 3.3 mg/dL (0.6-1.3); POTASSIUM 3.7 mmol/L (3.5-5.1)
[2024-01-12] MEDS: VANCOMYCIN 750 MG in DEXTROSE 5% 250 ML IV SCH (12:17)
[2024-01-12] MEDS: GAUZE TP SCH (13:00)
[2024-01-12] MEDS: THERAHONEY GEL 42.5 GM TP SCH (13:00)
[2024-01-13] VITALS (20 sets, daily range): BP systolic 108–140; BP diastolic 60–103; PULSE 66–90; RESP 12–24; TEMP 97–98.6; O2SAT 93–100
[2024-01-13 05:28] LABS: HEMATOCRIT 27.9 % (36-52); HEMOGLOBIN 9.5 g/dL (12.0-18.0); LYMPHOCYTES # (AUTO) 0.6 K/uL (2.0-11.5); LYMPHOCYTES % (AUTO) 4.3 % (20.5-51.1); MEAN CORPUSCULAR HEMOGLOBIN 30 pg (27-31); MEAN CORPUSCULAR HGB CONC 34 g/dL (33-37); MEAN CORPUSCULAR VOLUME 88.4 fL (80-94); MONOCYTES # (AUTO) 0.4 K/uL (0.8-1.0); NEUTROPHILS # (AUTO) 13.2 K/uL (1.8-7.7); NEUTROPHILS % (AUTO) 92.7 % (42.2-75.2); PLATELET COUNT (AUTO) 228 K/uL (140-450); RED BLOOD CELL COUNT(AUTO) 3.16 MIL/uL (4.20-6.10); RED CELL DISTRIBUTION WIDTH 16.7 % (11.6-13.7); WHITE BLOOD COUNT (AUTO) 14.2 K/uL (4.8-10.8)
[2024-01-13 05:41] LABS: ANION GAP 14.8 (8-16); CALCIUM 8.1 mg/dL (8.5-10.1); CARBON DIOXIDE 25.7 mmol/L (21-32); CREATININE 3.7 mg/dL (0.6-1.3); POTASSIUM 3.5 mmol/L (3.5-5.1)
[2024-01-13] MEDS: EPOETIN ALFA-EPBX 10,000 UNITS/ML VIAL IV SCH (09:28)
[2024-01-14] VITALS (15 sets, daily range): BP systolic 132–163; BP diastolic 75–108; PULSE 65–94; RESP 12–20; TEMP 97.3–98.7; O2SAT 96–100
[2024-01-14 00:28] LABS: APPEARANCE,URINE HAZY (CLEAR); BILIRUBIN,URINE NEGATIVE (NEGATIVE); BLOOD, URINE 1+ (NEGATIVE); COLOR,URINE YELLOW (YELLOW); LEUKOCYTE ESTERASE ,URINE 1+ (NEGATIVE); NITRITE, URINE NEGATIVE (NEGATIVE); PROTEIN,URINE 2+ (NEGATIVE); UGLUCOSE NEGATIVE (NEGATIVE); UROBILINOGEN,URINE 0.2 EU/dL (0.2 - 1)
[2024-01-14 00:39] LABS: BACTERIA,URINE 1+ /HPF (None Seen); RBC,URINE 11-20 (MOD) /HPF (0-5); WBC,URINE 20-60 /HPF (0-5)
[2024-01-14 00:40] LABS: SQUAMOUS EPITHELIAL CELL,UR 0-3 (FEW) /LPF (0-3 (FEW)); YEAST,URINE Few /HPF (None Seen)
[2024-01-14 07:14] LABS: LYMPHOCYTES # (AUTO) 0.7 K/uL (2.0-11.5); LYMPHOCYTES % (AUTO) 6.4 % (20.5-51.1); MEAN CORPUSCULAR HEMOGLOBIN 30 pg (27-31); MEAN CORPUSCULAR HGB CONC 33 g/dL (33-37); MONOCYTES # (AUTO) 0.4 K/uL (0.8-1.0); MONOCYTES % (AUTO) 3.5 % (1.7-9.3); NEUTROPHILS # (AUTO) 10.5 K/uL (1.8-7.7); NEUTROPHILS % (AUTO) 90.1 % (42.2-75.2); PLATELET COUNT (AUTO) 249 K/uL (140-450); RED BLOOD CELL COUNT(AUTO) 3.37 MIL/uL (4.20-6.10); RED CELL DISTRIBUTION WIDTH 16.8 % (11.6-13.7); WHITE BLOOD COUNT (AUTO) 11.7 K/uL (4.8-10.8)
[2024-01-14 07:23] LABS: ANION GAP 13.6 (8-16); CALCIUM 8.6 mg/dL (8.5-10.1); CARBON DIOXIDE 27.4 mmol/L (21-32); CREATININE 3.1 mg/dL (0.6-1.3)
[2024-01-14] MEDS: LIDOCAINE MPF 1% 0 ML ONE (08:35)
[2024-01-14] MEDS ORDERED: SEVOFLURANE 250 ML BTL INH ONE (09:00)
[2024-01-14] MEDS: BUPIVACAINE-MPF 0.25% 30 ML VIAL INJ ONE (09:20)
[2024-01-14] MEDS ORDERED: HYDROmorphone 1 MG/ML AMP IVP PRN (09:35)
[2024-01-14] MEDS ORDERED: ONDANSETRON 4 MG/2 ML VIAL IVP PRN (09:35)
[2024-01-14] MEDS ORDERED: MEPERIDINE 25 MG/ML SYR IVP PRN (09:35)
[2024-01-14] MEDS: VANCOMYCIN 500 MG in DEXTROSE 5% 100 ML IV SCH (12:57)
[2024-01-14] MEDS: HYDROCORTISONE NA SUCC 100 MG/2 ML VIAL IV SCH (21:35)
[2024-01-15] VITALS (16 sets, daily range): BP systolic 89–153; BP diastolic 55–91; PULSE 72–107; RESP 18–21; TEMP 96.9–97.9; O2SAT 97–100
[2024-01-15 06:59] LABS: ANION GAP 15.5 (8-16); CALCIUM 8.3 mg/dL (8.5-10.1); CARBON DIOXIDE 26.9 mmol/L (21-32); CREATININE 3.8 mg/dL (0.6-1.3); POTASSIUM 4.4 mmol/L (3.5-5.1)
[2024-01-15] MEDS ORDERED: VANCOMYCIN PER PHARMACY MC PRN (08:05)
[2024-01-15 09:15] LABS: BASOPHILS # (AUTO) 0.1 K/uL (0.00-0.22); BASOPHILS % (AUTO) 0.3 % (0.0-2.0); EOSINOPHILS % (AUTO) 0.1 % (0.0-4.0); HEMOGLOBIN 9.8 g/dL (12.0-18.0); LYMPHOCYTES # (AUTO) 2.4 K/uL (2.0-11.5); LYMPHOCYTES % (AUTO) 12.6 % (20.5-51.1); MEAN CORPUSCULAR HEMOGLOBIN 29 pg (27-31); MEAN CORPUSCULAR HGB CONC 33 g/dL (33-37); MEAN CORPUSCULAR VOLUME 90.3 fL (80-94); MONOCYTES % (AUTO) 5.4 % (1.7-9.3); NEUTROPHILS # (AUTO) 15.5 K/uL (1.8-7.7); NEUTROPHILS % (AUTO) 81.6 % (42.2-75.2); PLATELET COUNT (AUTO) 435 K/uL (140-450); RED BLOOD CELL COUNT(AUTO) 3.32 MIL/uL (4.20-6.10); RED CELL DISTRIBUTION WIDTH 17.3 % (11.6-13.7)
[2024-01-15] MEDS ORDERED: MIDODRINE 5 MG TAB GT SCH (18:45)
[2024-01-15] MEDS: MIDODRINE 5 MG TAB ONE (19:07)
[2024-01-15] MEDS: MIDODRINE 5 MG TAB PO SCH (19:09)
[2024-01-15] MEDS: APIXABAN 2.5 MG TAB PO SCH (21:23)
[2024-01-16] VITALS (20 sets, daily range): BP systolic 84–113; BP diastolic 52–68; PULSE 79–99; RESP 18–21; TEMP 97–99.5; O2SAT 90–100
[2024-01-16] MEDS: ALBUMIN HUMAN 25% 100 ML IV SCH (02:04)
[2024-01-16 07:20] LABS: BASOPHILS % (AUTO) 0.1 % (0.0-2.0); EOSINOPHILS % (AUTO) 0.2 % (0.0-4.0); LYMPHOCYTES % (AUTO) 7.5 % (20.5-51.1); MEAN CORPUSCULAR HEMOGLOBIN 30 pg (27-31); MEAN CORPUSCULAR HGB CONC 33 g/dL (33-37); MEAN CORPUSCULAR VOLUME 91.6 fL (80-94); MONOCYTES # (AUTO) 0.4 K/uL (0.8-1.0); MONOCYTES % (AUTO) 2.7 % (1.7-9.3); NEUTROPHILS # (AUTO) 12.4 K/uL (1.8-7.7); NEUTROPHILS % (AUTO) 89.5 % (42.2-75.2); PLATELET COUNT (AUTO) 227 K/uL (140-450); RED BLOOD CELL COUNT(AUTO) 2.05 MIL/uL (4.20-6.10); RED CELL DISTRIBUTION WIDTH 17.2 % (11.6-13.7); WHITE BLOOD COUNT (AUTO) 13.8 K/uL (4.8-10.8)
[2024-01-16 07:21] LABS: HEMATOCRIT 18.8 % (36-52)
[2024-01-16 07:22] LABS: HEMOGLOBIN 6.1 g/dL (12.0-18.0)
[2024-01-16 07:32] LABS: ANION GAP 16.1 (8-16); CALCIUM 7.8 mg/dL (8.5-10.1); CARBON DIOXIDE 26.4 mmol/L (21-32); POTASSIUM 4.5 mmol/L (3.5-5.1)
[2024-01-16 07:34] LABS: CREATININE 4.4 mg/dL (0.6-1.3)
[2024-01-16] MEDS: AMIODARONE 200 MG TAB PO SCH (15:49)
[2024-01-16] MEDS: VANCOMYCIN 500 MG in DEXTROSE 5% 100 ML IV SCH (18:40)
[2024-01-17] VITALS (18 sets, daily range): BP systolic 90–110; BP diastolic 50–72; PULSE 59–113; RESP 18–24; TEMP 97.1–98.4; O2SAT 95–100
[2024-01-17 06:56] LABS: HEMOGLOBIN 9.1 g/dL (12.0-18.0); MEAN CORPUSCULAR HEMOGLOBIN 31 pg (27-31); MEAN CORPUSCULAR HGB CONC 34 g/dL (33-37); MEAN CORPUSCULAR VOLUME 90.7 fL (80-94); PLATELET COUNT (AUTO) 251 K/uL (140-450); RED BLOOD CELL COUNT(AUTO) 2.98 MIL/uL (4.20-6.10); RED CELL DISTRIBUTION WIDTH 15.7 % (11.6-13.7); WHITE BLOOD COUNT (AUTO) 18.5 K/uL (4.8-10.8)
[2024-01-17 07:13] LABS: ANION GAP 14.9 (8-16); CALCIUM 7.8 mg/dL (8.5-10.1); CARBON DIOXIDE 28.3 mmol/L (21-32); CREATININE 3.2 mg/dL (0.6-1.3); POTASSIUM 4.2 mmol/L (3.5-5.1)
[2024-01-17 07:52] LABS: LYMPHOCYTES % (MANUAL) 5 % (20-46); MONOCYTES % (MANUAL) 3 % (5-12)
[2024-01-17] MEDS: DOCUSATE SODIUM 100 MG GELCAP PO ONE (10:11)
[2024-01-17] MEDS: MORPHINE SULFATE 2 MG/ML SYR IVP PRN (11:27)
[2024-01-18] VITALS (14 sets, daily range): BP systolic 85–140; BP diastolic 57–82; PULSE 80–104; RESP 18–20; TEMP 96.6–97.8; O2SAT 99–100
[2024-01-18 06:35] LABS: BASOPHILS % (AUTO) 0.1 % (0.0-2.0); EOSINOPHILS # (AUTO) 0.1 K/uL (0-0.4); EOSINOPHILS % (AUTO) 0.4 % (0.0-4.0); HEMATOCRIT 22.4 % (36-52); HEMOGLOBIN 7.5 g/dL (12.0-18.0); LYMPHOCYTES # (AUTO) 1.1 K/uL (2.0-11.5); LYMPHOCYTES % (AUTO) 7.4 % (20.5-51.1); MEAN CORPUSCULAR HEMOGLOBIN 31 pg (27-31); MEAN CORPUSCULAR HGB CONC 34 g/dL (33-37); MEAN CORPUSCULAR VOLUME 91.9 fL (80-94); MONOCYTES # (AUTO) 0.3 K/uL (0.8-1.0); MONOCYTES % (AUTO) 2.1 % (1.7-9.3); NEUTROPHILS # (AUTO) 12.9 K/uL (1.8-7.7); PLATELET COUNT (AUTO) 250 K/uL (140-450); RED BLOOD CELL COUNT(AUTO) 2.44 MIL/uL (4.20-6.10); RED CELL DISTRIBUTION WIDTH 15.7 % (11.6-13.7); WHITE BLOOD COUNT (AUTO) 14.3 K/uL (4.8-10.8)
[2024-01-18 07:13] LABS: CARBON DIOXIDE 27.1 mmol/L (21-32); CREATININE 3.9 mg/dL (0.6-1.3); POTASSIUM 4.1 mmol/L (3.5-5.1)
[2024-01-18] MEDS: ALBUMIN HUMAN 25% 100 ML IV ONE (11:38)
[2024-01-18] MEDS ORDERED: ALBUMIN HUMAN 25% 100 ML IV SCH (11:40)
[2024-01-19] VITALS (14 sets, daily range): BP systolic 93–121; BP diastolic 56–65; PULSE 80–94; RESP 17–19; TEMP 96.4–97.2; O2SAT 99–100
[2024-01-19 06:42] LABS: BASOPHILS # (AUTO) 0.1 K/uL (0.00-0.22); BASOPHILS % (AUTO) 0.4 % (0.0-2.0); EOSINOPHILS % (AUTO) 0.3 % (0.0-4.0); HEMATOCRIT 22.2 % (36-52); HEMOGLOBIN 7.4 g/dL (12.0-18.0); LYMPHOCYTES # (AUTO) 0.8 K/uL (2.0-11.5); LYMPHOCYTES % (AUTO) 6.4 % (20.5-51.1); MEAN CORPUSCULAR HEMOGLOBIN 31 pg (27-31); MEAN CORPUSCULAR HGB CONC 33 g/dL (33-37); MONOCYTES # (AUTO) 0.2 K/uL (0.8-1.0); MONOCYTES % (AUTO) 1.9 % (1.7-9.3); NEUTROPHILS # (AUTO) 11.6 K/uL (1.8-7.7); PLATELET COUNT (AUTO) 259 K/uL (140-450); RED BLOOD CELL COUNT(AUTO) 2.39 MIL/uL (4.20-6.10); RED CELL DISTRIBUTION WIDTH 16.5 % (11.6-13.7); WHITE BLOOD COUNT (AUTO) 12.8 K/uL (4.8-10.8)
[2024-01-19 07:05] LABS: CALCIUM 8.2 mg/dL (8.5-10.1); CARBON DIOXIDE 27.9 mmol/L (21-32); CREATININE 2.9 mg/dL (0.6-1.3); POTASSIUM 3.9 mmol/L (3.5-5.1)
[2024-01-19] MEDS ORDERED: [UNRECOGNIZED DRUG - CODE] IV (15:27)
== END 2024-01-19 20:10 | DRG 710 ==
LOC: MED 15:46 → MTU 18:30 → MIC 18:58 → MTU 01-14 09:02
PROVIDERS: ADMIT Family Medicine; ATTEND Family Medicine
PROC: 5A1955Z Respiratory Ventilation, Greater than 96 Consecutive Hours (ICD-10-PCS; 2024-01-10)
PROC: 02HV33Z Insertion of Infusion Device into Superior Vena Cava, Percutaneous Approach (ICD-10-PCS; 2024-01-10)
PROC: 5A1D70Z Performance of Urinary Filtration, Intermittent, Less than 6 Hours Per Day (ICD-10-PCS; 2024-01-11)
PROC: 0QB30ZZ Excision of Left Pelvic Bone, Open Approach (ICD-10-PCS; 2024-01-11)
PROC: B548ZZA Ultrasonography of Superior Vena Cava, Guidance (ICD-10-PCS; 2024-01-11)
PROC: 30233N1 Transfusion of Nonautologous Red Blood Cells into Peripheral Vein, Percutaneous Approach (ICD-10-PCS; 2024-01-12)
PROC: 5A1D70Z Performance of Urinary Filtration, Intermittent, Less than 6 Hours Per Day (ICD-10-PCS; 2024-01-13)
PROC: 0KBR0ZZ Excision of Left Upper Leg Muscle, Open Approach (ICD-10-PCS; 2024-01-14)
PROC: 0QB20ZZ Excision of Right Pelvic Bone, Open Approach (ICD-10-PCS; principal; 2024-01-14 09:00)
PROC: 5A1D70Z Performance of Urinary Filtration, Intermittent, Less than 6 Hours Per Day (ICD-10-PCS; 2024-01-16)
PROC: 5A1935Z Respiratory Ventilation, Less than 24 Consecutive Hours (ICD-10-PCS; 2024-01-18)
PROC: 5A1D70Z Performance of Urinary Filtration, Intermittent, Less than 6 Hours Per Day (ICD-10-PCS; 2024-01-18)
PROC: 5A1D70Z Performance of Urinary Filtration, Intermittent, Less than 6 Hours Per Day (ICD-10-PCS; 2024-01-19)
DX: A41.9 Sepsis, unspecified organism (principal); J96.21 Acute and chronic respiratory failure with hypoxia; R65.21 Severe sepsis with septic shock; E43 Unspecified severe protein-calorie malnutrition; L89.154 Pressure ulcer of sacral region, stage 4; I12.0 Hypertensive chronic kidney disease with stage 5 chronic kidney disease or end stage renal disease; I48.20 Chronic atrial fibrillation, unspecified; C92.01 Acute myeloblastic leukemia, in remission; N18.6 End stage renal disease; E11.22 Type 2 diabetes mellitus with diabetic chronic kidney disease; G80.9 Cerebral palsy, unspecified; E11.69 Type 2 diabetes mellitus with other specified complication; J44.9 Chronic obstructive pulmonary disease, unspecified; M86.8X8 Other osteomyelitis, other site; Z99.2 Dependence on renal dialysis; Z79.01 Long term (current) use of anticoagulants; Z86.73 Personal history of transient ischemic attack (TIA), and cerebral infarction without residual deficits; Z93.0 Tracheostomy status; Z99.11 Dependence on respirator [ventilator] status; Z93.1 Gastrostomy status; Z79.4 Long term (current) use of insulin; Z79.51 Long term (current) use of inhaled steroids; Z79.899 Other long term (current) drug therapy; Z79.1 Long term (current) use of non-steroidal anti-inflammatories (NSAID); Z68.28 Body mass index [BMI] 28.0-28.9, adult
CPT/HCPCS: 36415; 36430; 36556; 71045; 80048; 80076; 80202; 81001; 82550; 82948; 83605; 83690; 83880; 84439; 84443; 84484; 85025; 85610; 85730; 86886; 86900; 86901; 86920; 87040; 87070; 87075; 87081; 87086; 87186; 87205; 88304; 90935; 93005; 94002; 94003; 94640; 96365; 96367; 99291; C1751; J1644; J1720; J1815; J2001; J2185; J2270; J2543; J3370; J3490; J7060; J8597; P9016; P9046; Q5106

== ENCOUNTER 2024-01-25 12:25 | Inpatient (IN) | payer MEDICAID ==
[~2024-01-25] VITALS: Ht 180.3 cm; Wt 81.6 kg
[~2024-01-25 12:25] MED LIST changes: -ALBU0.0912 IH; -ATRMDI IH; -DILT60TA GT; -HYDR-1098 GT; -LISI-486 GT; -METH4TAB1 PO; -METO5SOL19 GT; +METO5SOL78 GT; -PIPE50SO5 IV; -VANC1VIA34 MC; +[UNRECOGNIZED DRUG - CODE] IV
[2024-01-25 12:30] VITALS: BP 85/45; PULSE 92; RESP 20; TEMP 98.3; O2SAT 100
[2024-01-25 12:56] LABS: BASOPHILS # (AUTO) 0.1 K/uL (0.00-0.22); BASOPHILS % (AUTO) 0.5 % (0.0-2.0); EOSINOPHILS # (AUTO) 0.1 K/uL (0-0.4); EOSINOPHILS % (AUTO) 0.6 % (0.0-4.0); HEMATOCRIT 20.5 % (36-52); LYMPHOCYTES # (AUTO) 1.4 K/uL (2.0-11.5); LYMPHOCYTES % (AUTO) 12.9 % (20.5-51.1); MEAN CORPUSCULAR HEMOGLOBIN 31 pg (27-31); MEAN CORPUSCULAR HGB CONC 33 g/dL (33-37); MONOCYTES # (AUTO) 0.3 K/uL (0.8-1.0); MONOCYTES % (AUTO) 2.6 % (1.7-9.3); NEUTROPHILS # (AUTO) 9.1 K/uL (1.8-7.7); NEUTROPHILS % (AUTO) 83.4 % (42.2-75.2); PLATELET COUNT (AUTO) 213 K/uL (140-450); RED BLOOD CELL COUNT(AUTO) 2.22 MIL/uL (4.20-6.10); WHITE BLOOD COUNT (AUTO) 10.9 K/uL (4.8-10.8)
[2024-01-25] MEDS ORDERED: cefTRIAXone 1,000 MG VIAL ONE (13:16)
[2024-01-25] MEDS: cefTRIAXone 1,000 MG in DEXT 5% MINI-BAG PLUS 50 ML IV ONE (13:20)
[2024-01-25 13:23] LABS: HEMOGLOBIN 6.8 g/dL (12.0-18.0)
[2024-01-25 13:27] LABS: CALCIUM 8.7 mg/dL (8.5-10.1); CARBON DIOXIDE 28.8 mmol/L (21-32); CREATININE 3.5 mg/dL (0.6-1.3); POTASSIUM 3.8 mmol/L (3.5-5.1)
[2024-01-25] MEDS: NACL 0.9% 2,000 ML IV SCH (13:27)
[2024-01-25 13:30] LABS: ALANINE AMINOTRANSFERASE 7 U/L (12-78); ALBUMIN 1.4 g/dL (3.4-5.0); ALKALINE PHOSPHATASE 99 U/L (50-136); ASPARTATE AMINOTRANSFERASE 23 U/L (15-37); BILIRUBIN,DIRECT 0.1 mg/dL (0.0-0.3); TOTAL BILIRUBIN 0.2 mg/dL (0.0-1.0); TOTAL PROTEIN, SERUM 5.3 g/dL (6.4-8.2)
[2024-01-25 13:39] LABS: LACTIC ACID 3.3 mmol/L (0.4-2.0)
[2024-01-25 14:03] LABS: FLU A ANTIGEN negative (NEGATIVE); FLU B ANTIGEN negative (NEGATIVE)
[2024-01-25] MEDS ORDERED: LORazepam 1 MG TAB PO PRN (16:45)
[2024-01-25] MEDS ORDERED: ZOLPIDEM 5 MG TAB PO PRN (16:45)
[2024-01-25] MEDS ORDERED: ONDANSETRON 4 MG/2 ML VIAL IVP PRN (16:45)
[2024-01-25] MEDS ORDERED: bisacodyL 10 MG SUPP RC PRN (16:50)
[2024-01-25] MEDS: NACL 0.9% 1,000 ML IV SCH (17:30)
[2024-01-25 20:27] VITALS: BP 112/72; PULSE 107; O2SAT 98
[2024-01-25 21:30] VITALS: BP 110/65; PULSE 108; PULSE 109; RESP 18; TEMP 97.6; O2SAT 100
[2024-01-25 22:23] VITALS: PULSE 103; RESP 22; O2SAT 100
[2024-01-25] MEDS: AMIODARONE 200 MG TAB PO SCH (22:34)
[2024-01-25] MEDS: METOCLOPRAMIDE 10 MG/10 ML SYRP UDC GT SCH (22:34)
[2024-01-25] MEDS: MIDODRINE 5 MG TAB PO SCH (22:35)
[2024-01-25] MEDS: aMILoride 5 MG TAB GT SCH (22:37)
[2024-01-25] MEDS: DOCUSATE 100 MG/10 ML UDC GT SCH (22:48)
[2024-01-26] VITALS (13 sets, daily range): BP systolic 92–122; BP diastolic 53–60; PULSE 86–105; RESP 20–23; TEMP 97.3–98.3; O2SAT 94–100
[2024-01-26 07:29] LABS: BASOPHILS # (AUTO) 0.1 K/uL (0.00-0.22); BASOPHILS % (AUTO) 0.5 % (0.0-2.0); EOSINOPHILS # (AUTO) 0.1 K/uL (0-0.4); EOSINOPHILS % (AUTO) 0.6 % (0.0-4.0); HEMATOCRIT 22.3 % (36-52); HEMOGLOBIN 7.5 g/dL (12.0-18.0); LYMPHOCYTES # (AUTO) 1.3 K/uL (2.0-11.5); LYMPHOCYTES % (AUTO) 11.8 % (20.5-51.1); MEAN CORPUSCULAR HEMOGLOBIN 31 pg (27-31); MEAN CORPUSCULAR HGB CONC 34 g/dL (33-37); MEAN CORPUSCULAR VOLUME 90.7 fL (80-94); MONOCYTES # (AUTO) 0.4 K/uL (0.8-1.0); MONOCYTES % (AUTO) 3.6 % (1.7-9.3); NEUTROPHILS # (AUTO) 9.1 K/uL (1.8-7.7); NEUTROPHILS % (AUTO) 83.5 % (42.2-75.2); PLATELET COUNT (AUTO) 179 K/uL (140-450); RED BLOOD CELL COUNT(AUTO) 2.45 MIL/uL (4.20-6.10); RED CELL DISTRIBUTION WIDTH 17.2 % (11.6-13.7); WHITE BLOOD COUNT (AUTO) 10.9 K/uL (4.8-10.8)
[2024-01-26] MEDS: ASCORBIC ACID 500 MG TAB GT SCH (08:32)
[2024-01-26] MEDS: PANTOPRAZOLE 40 MG INJ VIAL IVP SCH (08:32)
[2024-01-26] MEDS: VIT-B COMP/VIT-C/FOLIC ACID 1 TAB GT SCH (08:33)
[2024-01-26] MEDS: DILTIAZEM 30 MG TAB GT SCH (08:34)
[2024-01-26 08:43] LABS: ALBUMIN 1.4 g/dL (3.4-5.0); ANION GAP 15.5 (8-16); CALCIUM 8.5 mg/dL (8.5-10.1); CARBON DIOXIDE 25.5 mmol/L (21-32); CREATININE 3.5 mg/dL (0.6-1.3); TOTAL BILIRUBIN 0.4 mg/dL (0.0-1.0); TOTAL PROTEIN, SERUM 5.4 g/dL (6.4-8.2)
[2024-01-26] MEDS ORDERED: DOCUSATE SODIUM 100 MG GELCAP PO SCH (09:00)
[2024-01-26] MEDS: GAUZE TP PRN (12:19)
[2024-01-26] MEDS: THERAHONEY WOUND DRESSING TP SCH (12:19)
[2024-01-26] MEDS: THERAHONEY GEL 42.5 GM TP PRN (12:19)
[2024-01-27] VITALS (12 sets, daily range): BP systolic 81–116; BP diastolic 43–59; PULSE 89–105; RESP 21–26; TEMP 98.2–98.8; O2SAT 95–100
[2024-01-27 05:42] LABS: BASOPHILS % (AUTO) 0.3 % (0.0-2.0); EOSINOPHILS % (AUTO) 0.5 % (0.0-4.0); HEMATOCRIT 21.9 % (36-52); HEMOGLOBIN 7.3 g/dL (12.0-18.0); LYMPHOCYTES # (AUTO) 1.2 K/uL (2.0-11.5); MEAN CORPUSCULAR HEMOGLOBIN 30 pg (27-31); MEAN CORPUSCULAR HGB CONC 33 g/dL (33-37); MEAN CORPUSCULAR VOLUME 90.9 fL (80-94); MONOCYTES # (AUTO) 0.3 K/uL (0.8-1.0); MONOCYTES % (AUTO) 3.3 % (1.7-9.3); NEUTROPHILS # (AUTO) 8.7 K/uL (1.8-7.7); NEUTROPHILS % (AUTO) 83.9 % (42.2-75.2); PLATELET COUNT (AUTO) 180 K/uL (140-450); RED BLOOD CELL COUNT(AUTO) 2.41 MIL/uL (4.20-6.10); RED CELL DISTRIBUTION WIDTH 17.5 % (11.6-13.7); WHITE BLOOD COUNT (AUTO) 10.4 K/uL (4.8-10.8)
[2024-01-27 05:56] LABS: ALBUMIN 1.2 g/dL (3.4-5.0); CALCIUM 8.4 mg/dL (8.5-10.1); CARBON DIOXIDE 27.2 mmol/L (21-32); POTASSIUM 3.2 mmol/L (3.5-5.1); TOTAL BILIRUBIN 0.3 mg/dL (0.0-1.0)
[2024-01-27 06:00] LABS: CREATININE 4.2 mg/dL (0.6-1.3)
[2024-01-27] MEDS: KCL 20 MEQ IN 100 mL PREMIX 200 ML IV ONE (07:16)
[2024-01-27] MEDS ORDERED: THERAHONEY GEL 42.5 GM TP PRN (11:30)
[2024-01-27] MEDS: THERAHONEY GEL 42.5 GM TP SCH (12:20)
[2024-01-27] MEDS: GAUZE TP SCH (12:20)
[2024-01-27] MEDS: EPOETIN ALFA-EPBX 10,000 UNITS/ML VIAL IV SCH (17:00)
[2024-01-28] VITALS (10 sets, daily range): BP systolic 97–99; BP diastolic 54–55; PULSE 94–101; RESP 18–21; TEMP 98.1–98.5; O2SAT 96–100
[2024-01-28 06:46] LABS: BASOPHILS # (AUTO) 0.1 K/uL (0.00-0.22); BASOPHILS % (AUTO) 0.9 % (0.0-2.0); EOSINOPHILS # (AUTO) 0.1 K/uL (0-0.4); EOSINOPHILS % (AUTO) 0.6 % (0.0-4.0); HEMATOCRIT 21.1 % (36-52); HEMOGLOBIN 7.1 g/dL (12.0-18.0); LYMPHOCYTES # (AUTO) 1.4 K/uL (2.0-11.5); LYMPHOCYTES % (AUTO) 15.1 % (20.5-51.1); MEAN CORPUSCULAR HEMOGLOBIN 31 pg (27-31); MEAN CORPUSCULAR HGB CONC 34 g/dL (33-37); MEAN CORPUSCULAR VOLUME 91.7 fL (80-94); MONOCYTES # (AUTO) 0.4 K/uL (0.8-1.0); NEUTROPHILS # (AUTO) 7.4 K/uL (1.8-7.7); NEUTROPHILS % (AUTO) 79.4 % (42.2-75.2); PLATELET COUNT (AUTO) 156 K/uL (140-450); RED BLOOD CELL COUNT(AUTO) 2.31 MIL/uL (4.20-6.10); RED CELL DISTRIBUTION WIDTH 17.4 % (11.6-13.7); WHITE BLOOD COUNT (AUTO) 9.3 K/uL (4.8-10.8)
[2024-01-28 07:58] LABS: ALBUMIN 1.1 g/dL (3.4-5.0); ANION GAP 12.4 (8-16); CARBON DIOXIDE 26.5 mmol/L (21-32); CREATININE 2.6 mg/dL (0.6-1.3); POTASSIUM 3.9 mmol/L (3.5-5.1); TOTAL BILIRUBIN 0.2 mg/dL (0.0-1.0); TOTAL PROTEIN, SERUM 4.8 g/dL (6.4-8.2)
[2024-01-29] VITALS (12 sets, daily range): BP systolic 97–120; BP diastolic 55–68; PULSE 98–108; RESP 19–23; TEMP 98–98.8; O2SAT 97–100
[2024-01-29 05:43] LABS: ALBUMIN 1.2 g/dL (3.4-5.0); ANION GAP 10.6 (8-16); CALCIUM 8.4 mg/dL (8.5-10.1); CARBON DIOXIDE 28.4 mmol/L (21-32); CREATININE 3.5 mg/dL (0.6-1.3); TOTAL BILIRUBIN 0.2 mg/dL (0.0-1.0)
[2024-01-29 06:16] LABS: BASOPHILS % (AUTO) 0.5 % (0.0-2.0); EOSINOPHILS # (AUTO) 0.1 K/uL (0-0.4); EOSINOPHILS % (AUTO) 0.8 % (0.0-4.0); HEMATOCRIT 21.2 % (36-52); LYMPHOCYTES # (AUTO) 1.4 K/uL (2.0-11.5); LYMPHOCYTES % (AUTO) 16.1 % (20.5-51.1); MEAN CORPUSCULAR HEMOGLOBIN 30 pg (27-31); MEAN CORPUSCULAR HGB CONC 33 g/dL (33-37); MEAN CORPUSCULAR VOLUME 91.4 fL (80-94); MONOCYTES # (AUTO) 0.3 K/uL (0.8-1.0); NEUTROPHILS # (AUTO) 6.8 K/uL (1.8-7.7); NEUTROPHILS % (AUTO) 79.6 % (42.2-75.2); PLATELET COUNT (AUTO) 159 K/uL (140-450); RED BLOOD CELL COUNT(AUTO) 2.32 MIL/uL (4.20-6.10); RED CELL DISTRIBUTION WIDTH 17.3 % (11.6-13.7); WHITE BLOOD COUNT (AUTO) 8.5 K/uL (4.8-10.8)
[2024-01-29] MEDS: FOAM DRESSING TP SCH (08:54)
[2024-01-30] VITALS (10 sets, daily range): BP systolic 101–106; BP diastolic 60–65; PULSE 86–108; RESP 19–20; TEMP 96.7–99.2; O2SAT 98–100
[2024-01-30] MEDS: ACETAMINOPHEN 650 MG/20.3 ML UDC GT PRN (04:51)
[2024-01-30 05:30] LABS: BASOPHILS % (AUTO) 0.3 % (0.0-2.0); EOSINOPHILS # (AUTO) 0.1 K/uL (0-0.4); EOSINOPHILS % (AUTO) 1.1 % (0.0-4.0); HEMATOCRIT 20.1 % (36-52); LYMPHOCYTES # (AUTO) 1.3 K/uL (2.0-11.5); LYMPHOCYTES % (AUTO) 17.1 % (20.5-51.1); MEAN CORPUSCULAR HEMOGLOBIN 30 pg (27-31); MEAN CORPUSCULAR HGB CONC 33 g/dL (33-37); MEAN CORPUSCULAR VOLUME 90.4 fL (80-94); MONOCYTES # (AUTO) 0.2 K/uL (0.8-1.0); MONOCYTES % (AUTO) 3.2 % (1.7-9.3); NEUTROPHILS # (AUTO) 5.9 K/uL (1.8-7.7); NEUTROPHILS % (AUTO) 78.3 % (42.2-75.2); PLATELET COUNT (AUTO) 154 K/uL (140-450); RED BLOOD CELL COUNT(AUTO) 2.22 MIL/uL (4.20-6.10); RED CELL DISTRIBUTION WIDTH 17.1 % (11.6-13.7)
[2024-01-30 05:33] LABS: HEMOGLOBIN 6.7 g/dL (12.0-18.0)
[2024-01-30 05:35] LABS: WHITE BLOOD COUNT (AUTO) 7.6 K/uL (4.8-10.8)
[2024-01-30 06:28] LABS: ALBUMIN 1.2 g/dL (3.4-5.0); ANION GAP 13.5 (8-16); CALCIUM 8.8 mg/dL (8.5-10.1); CARBON DIOXIDE 26.8 mmol/L (21-32); POTASSIUM 4.3 mmol/L (3.5-5.1); TOTAL BILIRUBIN 0.2 mg/dL (0.0-1.0); TOTAL PROTEIN, SERUM 5.2 g/dL (6.4-8.2)
[2024-01-30 07:25] LABS: CREATININE 4.1 mg/dL (0.6-1.3)
[2024-01-31] VITALS (10 sets, daily range): BP systolic 99–109; BP diastolic 49–63; PULSE 83–96; RESP 19–20; TEMP 96.7–99.1; O2SAT 97–100
[2024-01-31 06:51] LABS: ALBUMIN 1.2 g/dL (3.4-5.0); ANION GAP 11.2 (8-16); CALCIUM 8.3 mg/dL (8.5-10.1); CARBON DIOXIDE 27.2 mmol/L (21-32); CREATININE 3.4 mg/dL (0.6-1.3); POTASSIUM 4.4 mmol/L (3.5-5.1); TOTAL BILIRUBIN 0.2 mg/dL (0.0-1.0); TOTAL PROTEIN, SERUM 5.2 g/dL (6.4-8.2)
[2024-01-31 08:17] LABS: HEMATOCRIT 20.7 % (36-52); MEAN CORPUSCULAR HEMOGLOBIN 30 pg (27-31); MEAN CORPUSCULAR HGB CONC 33 g/dL (33-37); MEAN CORPUSCULAR VOLUME 91.3 fL (80-94); PLATELET COUNT (AUTO) 159 K/uL (140-450); RED BLOOD CELL COUNT(AUTO) 2.26 MIL/uL (4.20-6.10); RED CELL DISTRIBUTION WIDTH 16.3 % (11.6-13.7); WHITE BLOOD COUNT (AUTO) 8.2 K/uL (4.8-10.8)
[2024-01-31 08:19] LABS: HEMOGLOBIN 6.8 g/dL (12.0-18.0)
[2024-01-31 08:39] LABS: MONOCYTES % (MANUAL) 3 % (5-12)
[2024-01-31 08:42] LABS: LYMPHOCYTES % (MANUAL) 16 % (20-46)
[2024-01-31 18:10] LABS: BASOPHILS % (AUTO) 0.6 % (0.0-2.0); EOSINOPHILS # (AUTO) 0.2 K/uL (0-0.4); EOSINOPHILS % (AUTO) 2.2 % (0.0-4.0); HEMATOCRIT 22.2 % (36-52); HEMOGLOBIN 7.5 g/dL (12.0-18.0); LYMPHOCYTES # (AUTO) 1.3 K/uL (2.0-11.5); MEAN CORPUSCULAR HEMOGLOBIN 30 pg (27-31); MEAN CORPUSCULAR HGB CONC 34 g/dL (33-37); MEAN CORPUSCULAR VOLUME 87.2 fL (80-94); MONOCYTES # (AUTO) 0.3 K/uL (0.8-1.0); MONOCYTES % (AUTO) 3.5 % (1.7-9.3); NEUTROPHILS # (AUTO) 5.4 K/uL (1.8-7.7); NEUTROPHILS % (AUTO) 75.7 % (42.2-75.2); PLATELET COUNT (AUTO) 170 K/uL (140-450); RED BLOOD CELL COUNT(AUTO) 2.55 MIL/uL (4.20-6.10); WHITE BLOOD COUNT (AUTO) 7.1 K/uL (4.8-10.8)
[2024-02-01] VITALS (12 sets, daily range): BP systolic 98–108; BP diastolic 49–63; PULSE 74–94; RESP 18–20; TEMP 97.8–98.2; O2SAT 95–100
[2024-02-01 05:54] LABS: BASOPHILS % (AUTO) 0.2 % (0.0-2.0); EOSINOPHILS # (AUTO) 0.2 K/uL (0-0.4); EOSINOPHILS % (AUTO) 1.2 % (0.0-4.0); HEMOGLOBIN 7.5 g/dL (12.0-18.0); LYMPHOCYTES # (AUTO) 1.8 K/uL (2.0-11.5); LYMPHOCYTES % (AUTO) 13.3 % (20.5-51.1); MEAN CORPUSCULAR HEMOGLOBIN 29 pg (27-31); MEAN CORPUSCULAR HGB CONC 33 g/dL (33-37); MEAN CORPUSCULAR VOLUME 88.4 fL (80-94); MONOCYTES # (AUTO) 0.3 K/uL (0.8-1.0); MONOCYTES % (AUTO) 1.9 % (1.7-9.3); NEUTROPHILS # (AUTO) 11.5 K/uL (1.8-7.7); NEUTROPHILS % (AUTO) 83.4 % (42.2-75.2); PLATELET COUNT (AUTO) 220 K/uL (140-450); RED CELL DISTRIBUTION WIDTH 17.9 % (11.6-13.7); WHITE BLOOD COUNT (AUTO) 13.8 K/uL (4.8-10.8)
[2024-02-01 06:21] LABS: ALBUMIN 1.3 g/dL (3.4-5.0); ANION GAP 13.9 (8-16); CALCIUM 8.7 mg/dL (8.5-10.1); CARBON DIOXIDE 25.2 mmol/L (21-32); POTASSIUM 4.1 mmol/L (3.5-5.1); TOTAL BILIRUBIN 0.3 mg/dL (0.0-1.0); TOTAL PROTEIN, SERUM 5.4 g/dL (6.4-8.2)
[2024-02-01 06:56] LABS: CREATININE 4.2 mg/dL (0.6-1.3)
[2024-02-01] MEDS: ALBUMIN HUMAN 25% 50 ML IV SCH (15:38)
[2024-02-01] MEDS: SODIUM FERRIC GLUCONATE 125 MG in NACL 0.9% 100 ML IV SCH (16:46)
[2024-02-02] VITALS (10 sets, daily range): BP systolic 103–109; BP diastolic 55–57; PULSE 19–100; RESP 18–20; TEMP 97.6–99.5; O2SAT 93–100
[2024-02-02 05:43] LABS: BASOPHILS % (AUTO) 0.4 % (0.0-2.0); EOSINOPHILS # (AUTO) 0.2 K/uL (0-0.4); HEMATOCRIT 22.4 % (36-52); HEMOGLOBIN 7.2 g/dL (12.0-18.0); LYMPHOCYTES # (AUTO) 1.7 K/uL (2.0-11.5); LYMPHOCYTES % (AUTO) 14.9 % (20.5-51.1); MEAN CORPUSCULAR HEMOGLOBIN 28 pg (27-31); MEAN CORPUSCULAR HGB CONC 32 g/dL (33-37); MEAN CORPUSCULAR VOLUME 87.8 fL (80-94); MONOCYTES # (AUTO) 0.3 K/uL (0.8-1.0); MONOCYTES % (AUTO) 2.7 % (1.7-9.3); NEUTROPHILS # (AUTO) 9.1 K/uL (1.8-7.7); PLATELET COUNT (AUTO) 231 K/uL (140-450); RED BLOOD CELL COUNT(AUTO) 2.55 MIL/uL (4.20-6.10); RED CELL DISTRIBUTION WIDTH 17.3 % (11.6-13.7); WHITE BLOOD COUNT (AUTO) 11.4 K/uL (4.8-10.8)
[2024-02-02 06:20] LABS: ALBUMIN 1.4 g/dL (3.4-5.0); ANION GAP 11.3 (8-16); CALCIUM 8.7 mg/dL (8.5-10.1); CARBON DIOXIDE 28.5 mmol/L (21-32); CREATININE 3.3 mg/dL (0.6-1.3); POTASSIUM 3.8 mmol/L (3.5-5.1); TOTAL BILIRUBIN 0.2 mg/dL (0.0-1.0); TOTAL PROTEIN, SERUM 5.4 g/dL (6.4-8.2)
[2024-02-02 21:39] LABS: HEMATOCRIT 27.5 % (36-52); HEMOGLOBIN 9.3 g/dL (12.0-18.0)
== END 2024-02-02 22:50 | DRG 253 ==
LOC: MED 12:25 → MMU 16:48 → MTU 16:48 → MMU 19:58
PROVIDERS: ADMIT Student in an Organized Health Care Education/Training Program; ATTEND Student in an Organized Health Care Education/Training Program
PROC: 30233N1 Transfusion of Nonautologous Red Blood Cells into Peripheral Vein, Percutaneous Approach (ICD-10-PCS; principal; 2024-01-25)
PROC: 5A1955Z Respiratory Ventilation, Greater than 96 Consecutive Hours (ICD-10-PCS; 2024-01-25)
PROC: 5A1D70Z Performance of Urinary Filtration, Intermittent, Less than 6 Hours Per Day (ICD-10-PCS; 2024-01-27)
PROC: 5A1D70Z Performance of Urinary Filtration, Intermittent, Less than 6 Hours Per Day (ICD-10-PCS; 2024-01-30)
PROC: 5A1D70Z Performance of Urinary Filtration, Intermittent, Less than 6 Hours Per Day (ICD-10-PCS; 2024-02-01)
DX: K55.21 Angiodysplasia of colon with hemorrhage (principal); E43 Unspecified severe protein-calorie malnutrition; E87.20 Acidosis, unspecified; I12.0 Hypertensive chronic kidney disease with stage 5 chronic kidney disease or end stage renal disease; J96.10 Chronic respiratory failure, unspecified whether with hypoxia or hypercapnia; Z99.11 Dependence on respirator [ventilator] status; Z93.0 Tracheostomy status; D64.9 Anemia, unspecified; E11.22 Type 2 diabetes mellitus with diabetic chronic kidney disease; I48.0 Paroxysmal atrial fibrillation; N18.6 End stage renal disease; Z20.822 Contact with and (suspected) exposure to COVID-19; K21.9 Gastro-esophageal reflux disease without esophagitis; Z99.2 Dependence on renal dialysis; Z79.01 Long term (current) use of anticoagulants; Z79.899 Other long term (current) drug therapy; Z86.73 Personal history of transient ischemic attack (TIA), and cerebral infarction without residual deficits; Z85.6 Personal history of leukemia; Z93.1 Gastrostomy status
CPT/HCPCS: 36415; 36430; 71045; 78278; 80048; 80053; 80076; 82272; 82728; 82948; 83540; 83605; 83880; 84484; 85018; 85025; 86886; 86900; 86901; 86920; 87040; 87081; 90935; 93005; 94002; 94003; 94640; 96361; 96365; 99285; C9113; J0696; J1644; J2916; J3480; J8597; P9016; P9046; Q5106

== ENCOUNTER 2024-02-22 02:40 | Inpatient (IN) | payer MEDICAID ==
[2024-02-22] VITALS (10 sets, daily range): BP systolic 75–109; BP diastolic 41–65; PULSE 92–110; RESP 15–20; TEMP 98.5–99.1; O2SAT 98–100
[~2024-02-22] VITALS: Ht 175.3 cm; Wt 89.4 kg
[~2024-02-22 02:40] MED LIST changes: -[UNRECOGNIZED DRUG - CODE] IV
[2024-02-22 03:26] LABS: BASOPHILS # (AUTO) 0.1 K/uL (0.00-0.22); BASOPHILS % (AUTO) 0.3 % (0.0-2.0); EOSINOPHILS # (AUTO) 0.5 K/uL (0-0.4); EOSINOPHILS % (AUTO) 2.5 % (0.0-4.0); LYMPHOCYTES # (AUTO) 2.9 K/uL (2.0-11.5); LYMPHOCYTES % (AUTO) 13.7 % (20.5-51.1); MEAN CORPUSCULAR HEMOGLOBIN 28 pg (27-31); MEAN CORPUSCULAR HGB CONC 31 g/dL (33-37); MEAN CORPUSCULAR VOLUME 90.6 fL (80-94); MONOCYTES # (AUTO) 1.2 K/uL (0.8-1.0); MONOCYTES % (AUTO) 5.7 % (1.7-9.3); NEUTROPHILS # (AUTO) 16.2 K/uL (1.8-7.7); NEUTROPHILS % (AUTO) 77.8 % (42.2-75.2); PLATELET COUNT (AUTO) 233 K/uL (140-450); RED BLOOD CELL COUNT(AUTO) 1.88 MIL/uL (4.20-6.10); RED CELL DISTRIBUTION WIDTH 19.3 % (11.6-13.7); WHITE BLOOD COUNT (AUTO) 20.9 K/uL (4.8-10.8)
[2024-02-22 03:29] LABS: HEMOGLOBIN 5.2 g/dL (12.0-18.0)
[2024-02-22 03:30] LABS: HEMATOCRIT 17.1 % (36-52)
[2024-02-22 03:44] LABS: ANION GAP 8.2 (8-16); CARBON DIOXIDE 31.4 mmol/L (21-32); CREATININE 3.3 mg/dL (0.6-1.3); POTASSIUM 3.6 mmol/L (3.5-5.1)
[2024-02-22] MEDS ORDERED: PANTOPRAZOLE 40 MG INJ VIAL ONE (03:49)
[2024-02-22] MEDS: PANTOPRAZOLE 40 MG in SODIUM CHLORIDE FLUSH 250 ML IV ONE (03:55)
[2024-02-22 04:08] LABS: BILIRUBIN,DIRECT 0.1 mg/dL (0.0-0.3)
[2024-02-22] MEDS: DEXTROSE 50% 50 ML SYR IVP ONE (05:18)
[2024-02-22] MEDS ORDERED: MEROPENEM 1,000 MG VIAL IV ONE ×2 (05:32)
[2024-02-22] MEDS: MEROPENEM 1,000 MG in NACL 0.9% 50 ML IV ONE (05:49)
[2024-02-22] MEDS ORDERED: HYDROcodone/APAP 5/325 MG 1 TAB TAB PO PRN ×2 (05:55→06:00)
[2024-02-22] MEDS ORDERED: ACETAMINOPHEN 325 MG TAB PO PRN ×2 (05:55→06:00)
[2024-02-22] MEDS ORDERED: ONDANSETRON 4 MG/2 ML VIAL IVP PRN (05:55)
[2024-02-22] MEDS ORDERED: MORPHINE SULFATE 4 MG/ML SYR IVP PRN ×2 (05:55→06:00)
[2024-02-22] MEDS ORDERED: NACL 0.9% 1,000 ML IV SCH (06:00)
[2024-02-22] MEDS ORDERED: DEXTROSE 50% 50 ML SYR IVP PRN (06:00)
[2024-02-22] MEDS ORDERED: PIPERACILLIN/TAZOBACTAM 4.5 GM in DEXTROSE 5% 100 ML IV SCH ×2 (06:00→12:00)
[2024-02-22] MEDS ORDERED: VANCOMYCIN PER PHARMACY MC PRN ×2 (06:00→06:15)
[2024-02-22] MEDS: NACL 0.9% 1,000 ML IV SCH (06:15)
[2024-02-22] MEDS ORDERED: VANCOMYCIN 1,000 MG VIAL ONE (06:39)
[2024-02-22] MEDS: NACL 0.9% 2,000 ML IV ONE (06:50)
[2024-02-22] MEDS: VANCOMYCIN 1,000 MG in DEXTROSE 5% 250 ML IV ONE (06:50)
[2024-02-22] MEDS ORDERED: LEVO50CA2 PO (07:18)
[2024-02-22 07:37] LABS: TOTAL BILIRUBIN 0.3 mg/dL (0.0-1.0); TOTAL PROTEIN, SERUM 5.8 g/dL (6.4-8.2)
[2024-02-22 07:53] LABS: LACTIC ACID 4.2 mmol/L (0.4-2.0)
[2024-02-22] MEDS: DEXTROSE 50% 50 ML SYR IVP PRN (08:20)
[2024-02-22] MEDS ORDERED: PIPERACILLIN/TAZOBACTAM 2.25 GM VIAL IV ONE (14:19)
[2024-02-22] MEDS: PIPERACILLIN/TAZOBACTAM 2.25 GM in DEXTROSE 5% 50 ML IV SCH (14:22)
[2024-02-22] MEDS ORDERED: ALBUMIN HUMAN 25% 50 ML IV ONE (17:25)
[2024-02-22] MEDS: EPOETIN ALFA-EPBX 10,000 UNITS/ML VIAL IV SCH (17:38)
[2024-02-22] MEDS: ALBUMIN HUMAN 25% 200 ML IV SCH (17:45)
[2024-02-22 18:16] LABS: HEMATOCRIT 29.5 % (36-52); HEMOGLOBIN 9.4 g/dL (12.0-18.0)
[2024-02-22] MEDS: MIDODRINE 5 MG TAB GT STA (23:56)
[2024-02-23] VITALS (18 sets, daily range): BP systolic 52–119; BP diastolic 25–73; PULSE 85–105; RESP 18–24; TEMP 96.9–98.6; O2SAT 96–100
[2024-02-23] MEDS ORDERED: bisacodyL 10 MG SUPP RC PRN
[2024-02-23] MEDS: MIDODRINE 5 MG TAB GT ONE (00:25)
[2024-02-23] MEDS: MIDODRINE 5 MG TAB PO SCH (06:00)
[2024-02-23 06:51] LABS: HEMATOCRIT 27.2 % (36-52); HEMOGLOBIN 8.9 g/dL (12.0-18.0); MEAN CORPUSCULAR HEMOGLOBIN 29 pg (27-31); MEAN CORPUSCULAR HGB CONC 33 g/dL (33-37); PLATELET COUNT (AUTO) 158 K/uL (140-450); RED BLOOD CELL COUNT(AUTO) 3.03 MIL/uL (4.20-6.10); RED CELL DISTRIBUTION WIDTH 18.4 % (11.6-13.7); WHITE BLOOD COUNT (AUTO) 22.8 K/uL (4.8-10.8)
[2024-02-23 08:23] LABS: EOSINOPHILS % (MANUAL) 2 % (0-4); LYMPHOCYTES % (MANUAL) 10 % (20-46); METAMYELOCYTES % 2 % (0-0); MONOCYTES % (MANUAL) 2 % (5-12); MYELOCYTES % 3 % (0-0)
[2024-02-23 08:24] LABS: OVALOCYTES 1+; PLATELET ESTIMATE ADEQUATE; POLYCHROMASIA 1+
[2024-02-23] MEDS: aMILoride 5 MG TAB GT SCH (09:00)
[2024-02-23] MEDS: POLYETHYLENE GLYCOL 17 GM/PKT PO SCH (09:03)
[2024-02-23] MEDS: VIT-B COMP/VIT-C/FOLIC ACID 1 TAB GT SCH (09:03)
[2024-02-23] MEDS: DOCUSATE SODIUM 100 MG GELCAP PO SCH (09:04)
[2024-02-23] MEDS: SEVELAMER CARBONATE 800 MG TAB PO SCH (09:04)
[2024-02-23] MEDS: DILTIAZEM 30 MG TAB GT SCH (09:04)
[2024-02-23] MEDS: ZINC SULF 220 MG CAP GT SCH (09:05)
[2024-02-23] MEDS: AMIODARONE 200 MG TAB PO SCH (09:05)
[2024-02-23] MEDS: ASCORBIC ACID 500 MG TAB GT SCH (09:06)
[2024-02-23] MEDS: DOCUSATE 100 MG/10 ML UDC PO SCH (09:25)
[2024-02-23 11:16] LABS: ALBUMIN 1.5 g/dL (3.4-5.0); ANION GAP 14.8 (8-16); CALCIUM 10.2 mg/dL (8.5-10.1); CARBON DIOXIDE 26.7 mmol/L (21-32); CREATININE 2.8 mg/dL (0.6-1.3); POTASSIUM 3.5 mmol/L (3.5-5.1); TOTAL BILIRUBIN 0.6 mg/dL (0.0-1.0); TOTAL PROTEIN, SERUM 5.6 g/dL (6.4-8.2)
[2024-02-23] MEDS: ALBUMIN HUMAN 25% 0 ML IV ONE (12:42)
[2024-02-23] MEDS: ALBUMIN HUMAN 25% 200 ML IV SCH (13:05)
[2024-02-23] MEDS ORDERED: ALBUMIN HUMAN 25% 200 ML IV SCH (17:28)
[2024-02-23] MEDS: VANCOMYCIN 1,000 MG in DEXTROSE 5% 250 ML IV SCH (17:35)
[2024-02-23 17:58] LABS: APPEARANCE,URINE CLEAR (CLEAR); BILIRUBIN,URINE 1+ (NEGATIVE); BLOOD, URINE NEGATIVE (NEGATIVE); COLOR,URINE YELLOW (YELLOW); LEUKOCYTE ESTERASE ,URINE 2+ (NEGATIVE); NITRITE, URINE NEGATIVE (NEGATIVE); PROTEIN,URINE 2+ (NEGATIVE); UGLUCOSE NEGATIVE (NEGATIVE); UROBILINOGEN,URINE 0.2 EU/dL (0.2 - 1)
[2024-02-23 18:00] LABS: ICTOTEST NEGATIVE (NEGATIVE)
[2024-02-23 18:02] LABS: BACTERIA,URINE 10-30 (MOD) /HPF (None Seen); RBC,URINE 0-5 /HPF (0-5); SQUAMOUS EPITHELIAL CELL,UR 0-3 (FEW) /LPF (0-3 (FEW)); WBC,URINE 16-25 (MOD) /HPF (0-5)
[2024-02-23] MEDS: NOREPINEPHRINE 4 MG/4 ML VIAL IV ONE (20:37)
[2024-02-23] MEDS: NOREPINEPHRINE 16 MG in DEXTROSE 5% 250 ML IV PRN (20:40)
[2024-02-24] VITALS (33 sets, daily range): BP systolic 52–129; BP diastolic 34–71; PULSE 86–104; RESP 18–28; TEMP 97.5–101; O2SAT 97–100
[2024-02-24 05:36] LABS: BASOPHILS # (AUTO) 0.1 K/uL (0.00-0.22); BASOPHILS % (AUTO) 0.4 % (0.0-2.0); EOSINOPHILS % (AUTO) 3.6 % (0.0-4.0); HEMATOCRIT 27.7 % (36-52); HEMOGLOBIN 8.8 g/dL (12.0-18.0); LYMPHOCYTES # (AUTO) 1.7 K/uL (2.0-11.5); LYMPHOCYTES % (AUTO) 6.2 % (20.5-51.1); MEAN CORPUSCULAR HEMOGLOBIN 29 pg (27-31); MEAN CORPUSCULAR HGB CONC 32 g/dL (33-37); MONOCYTES # (AUTO) 0.8 K/uL (0.8-1.0); MONOCYTES % (AUTO) 3.1 % (1.7-9.3); NEUTROPHILS # (AUTO) 23.9 K/uL (1.8-7.7); NEUTROPHILS % (AUTO) 86.7 % (42.2-75.2); PLATELET COUNT (AUTO) 144 K/uL (140-450); RED BLOOD CELL COUNT(AUTO) 3.01 MIL/uL (4.20-6.10); RED CELL DISTRIBUTION WIDTH 18.3 % (11.6-13.7)
[2024-02-24 05:51] LABS: CALCIUM 11.4 mg/dL (8.5-10.1); CARBON DIOXIDE 26.4 mmol/L (21-32); CREATININE 3.3 mg/dL (0.6-1.3); POTASSIUM 3.4 mmol/L (3.5-5.1)
[2024-02-24 05:59] LABS: WHITE BLOOD COUNT (AUTO) 27.5 K/uL (4.8-10.8)
[2024-02-24] MEDS: aMILoride 5 MG TAB GT SCH (08:10)
[2024-02-24] MEDS: BLOOD GLUCOSE MONITORING 1 DEV DEV FS SCH (08:14)
[2024-02-24] MEDS: METOCLOPRAMIDE 10 MG/2 ML INJ VIAL IVP PRN (12:59)
[2024-02-24] MEDS: POTASSIUM CHLORIDE 20% 40 MEQ/15 ML UDC GT SCH (12:59)
[2024-02-24] MEDS: ACETAMINOPHEN 325 MG TAB GT PRN (12:59)
[2024-02-24] MEDS ORDERED: HYDRAGUARD CREAM TP PRN (14:15)
[2024-02-24] MEDS ORDERED: GAUZE TP PRN ×2 (14:15)
[2024-02-24] MEDS ORDERED: FOAM DRESSING TP PRN (14:15)
[2024-02-24 16:33] LABS: BLOOD GAS BASE EXCESS -3.6 mmol/L (-2.0-2.0); BLOOD GAS HCO3 19.9 mmol/L (22-26); BLOOD GAS O2 SAT% 98.4 % (92.0-98.5); BLOOD GAS PCO2 30.6 mmHg (35-45); BLOOD GAS PH 7.431 (7.35-7.45); BLOOD GAS PO2 107.6 mmHg (75-100)
[2024-02-24] MEDS: ONDANSETRON 4 MG/2 ML VIAL IVP PRN (17:54)
[2024-02-24] MEDS: DEXTROSE 10% 1,000 ML IV SCH (22:05)
[2024-02-25] VITALS (30 sets, daily range): BP systolic 87–153; BP diastolic 49–76; PULSE 75–98; RESP 18–27; TEMP 97.3–98.8; O2SAT 98–100
[2024-02-25] MEDS: HYDRAGUARD CREAM TP SCH (01:00)
[2024-02-25] MEDS: GAUZE TP SCH ×2 (01:00→13:24)
[2024-02-25] MEDS: NOREPINEPHRINE 4 MG/4 ML VIAL IV ONE ×2 (03:38→03:53)
[2024-02-25 06:18] LABS: BASOPHILS # (AUTO) 0.1 K/uL (0.00-0.22); BASOPHILS % (AUTO) 0.3 % (0.0-2.0); EOSINOPHILS # (AUTO) 0.6 K/uL (0-0.4); EOSINOPHILS % (AUTO) 2.8 % (0.0-4.0); HEMATOCRIT 27.3 % (36-52); HEMOGLOBIN 8.7 g/dL (12.0-18.0); LYMPHOCYTES # (AUTO) 2.1 K/uL (2.0-11.5); LYMPHOCYTES % (AUTO) 8.9 % (20.5-51.1); MEAN CORPUSCULAR HEMOGLOBIN 29 pg (27-31); MEAN CORPUSCULAR HGB CONC 32 g/dL (33-37); MEAN CORPUSCULAR VOLUME 91.6 fL (80-94); MONOCYTES # (AUTO) 1.1 K/uL (0.8-1.0); MONOCYTES % (AUTO) 4.8 % (1.7-9.3); NEUTROPHILS # (AUTO) 19.2 K/uL (1.8-7.7); NEUTROPHILS % (AUTO) 83.2 % (42.2-75.2); PLATELET COUNT (AUTO) 114 K/uL (140-450); RED BLOOD CELL COUNT(AUTO) 2.98 MIL/uL (4.20-6.10); RED CELL DISTRIBUTION WIDTH 19.2 % (11.6-13.7); WHITE BLOOD COUNT (AUTO) 23.1 K/uL (4.8-10.8)
[2024-02-25 06:35] LABS: ANION GAP 13.8 (8-16); CALCIUM 11.8 mg/dL (8.5-10.1); CARBON DIOXIDE 24.6 mmol/L (21-32); CREATININE 3.9 mg/dL (0.6-1.3); POTASSIUM 3.4 mmol/L (3.5-5.1)
[2024-02-25] MEDS: KCL 20 MEQ IN 100 mL PREMIX 100 ML IV ONE (13:06)
[2024-02-25] MEDS: FOAM DRESSING TP SCH (13:24)
[2024-02-25] MEDS: VANCOMYCIN 1,000 MG in DEXTROSE 5% 250 ML IV SCH (15:54)
[2024-02-26] VITALS (31 sets, daily range): BP systolic 94–136; BP diastolic 56–83; PULSE 74–84; RESP 20–23; TEMP 97.1–98.5; O2SAT 100
[2024-02-26] MEDS: NOREPINEPHRINE 4 MG/4 ML VIAL IV ONE (03:02)
[2024-02-26 06:14] LABS: BASOPHILS # (AUTO) 0.1 K/uL (0.00-0.22); BASOPHILS % (AUTO) 0.3 % (0.0-2.0); EOSINOPHILS # (AUTO) 0.9 K/uL (0-0.4); EOSINOPHILS % (AUTO) 4.2 % (0.0-4.0); HEMATOCRIT 25.4 % (36-52); HEMOGLOBIN 8.3 g/dL (12.0-18.0); LYMPHOCYTES # (AUTO) 1.3 K/uL (2.0-11.5); LYMPHOCYTES % (AUTO) 6.1 % (20.5-51.1); MEAN CORPUSCULAR HEMOGLOBIN 30 pg (27-31); MEAN CORPUSCULAR HGB CONC 33 g/dL (33-37); MONOCYTES # (AUTO) 0.8 K/uL (0.8-1.0); NEUTROPHILS % (AUTO) 85.4 % (42.2-75.2); PLATELET COUNT (AUTO) 74 K/uL (140-450); RED BLOOD CELL COUNT(AUTO) 2.79 MIL/uL (4.20-6.10); RED CELL DISTRIBUTION WIDTH 18.5 % (11.6-13.7)
[2024-02-26 06:23] LABS: ANION GAP 11.7 (8-16); CALCIUM 10.9 mg/dL (8.5-10.1); CARBON DIOXIDE 26.7 mmol/L (21-32); CREATININE 3.1 mg/dL (0.6-1.3); POTASSIUM 3.4 mmol/L (3.5-5.1)
[2024-02-27] VITALS (34 sets, daily range): BP systolic 85–176; BP diastolic 52–103; PULSE 76–99; RESP 14–24; TEMP 97–97.8; O2SAT 99–100
[2024-02-27 05:33] LABS: BASOPHILS # (AUTO) 0.1 K/uL (0.00-0.22); BASOPHILS % (AUTO) 0.4 % (0.0-2.0); EOSINOPHILS # (AUTO) 0.7 K/uL (0-0.4); EOSINOPHILS % (AUTO) 4.3 % (0.0-4.0); HEMATOCRIT 26.3 % (36-52); HEMOGLOBIN 8.4 g/dL (12.0-18.0); LYMPHOCYTES # (AUTO) 1.1 K/uL (2.0-11.5); LYMPHOCYTES % (AUTO) 6.5 % (20.5-51.1); MEAN CORPUSCULAR HEMOGLOBIN 29 pg (27-31); MEAN CORPUSCULAR HGB CONC 32 g/dL (33-37); MEAN CORPUSCULAR VOLUME 91.6 fL (80-94); MONOCYTES # (AUTO) 0.5 K/uL (0.8-1.0); MONOCYTES % (AUTO) 2.9 % (1.7-9.3); NEUTROPHILS # (AUTO) 14.8 K/uL (1.8-7.7); NEUTROPHILS % (AUTO) 85.9 % (42.2-75.2); PLATELET COUNT (AUTO) 57 K/uL (140-450); RED BLOOD CELL COUNT(AUTO) 2.86 MIL/uL (4.20-6.10); RED CELL DISTRIBUTION WIDTH 18.7 % (11.6-13.7); WHITE BLOOD COUNT (AUTO) 17.2 K/uL (4.8-10.8)
[2024-02-27 05:48] LABS: ANION GAP 10.3 (8-16); CALCIUM 11.6 mg/dL (8.5-10.1); CREATININE 3.5 mg/dL (0.6-1.3); POTASSIUM 3.3 mmol/L (3.5-5.1)
[2024-02-27] MEDS: KCL 20 MEQ IN 100 mL PREMIX 100 ML IV SCH (08:00)
[2024-02-27] MEDS ORDERED: VANCOMYCIN PER PHARMACY MC PRN (10:35)
[2024-02-27] MEDS: ALBUMIN HUMAN 25% 100 ML IV SCH (17:39)
[2024-02-28] VITALS (30 sets, daily range): BP systolic 85–133; BP diastolic 47–92; PULSE 80–97; RESP 14–26; TEMP 96.2–97.7; O2SAT 96–100
[2024-02-28 07:18] LABS: ANION GAP 13.5 (8-16); CALCIUM 10.8 mg/dL (8.5-10.1); CARBON DIOXIDE 26.6 mmol/L (21-32); POTASSIUM 4.1 mmol/L (3.5-5.1)
[2024-02-28 08:04] LABS: HEMATOCRIT 27.3 % (36-52); HEMOGLOBIN 8.6 g/dL (12.0-18.0); MEAN CORPUSCULAR HEMOGLOBIN 29 pg (27-31); MEAN CORPUSCULAR HGB CONC 32 g/dL (33-37); MEAN CORPUSCULAR VOLUME 91.7 fL (80-94); PLATELET COUNT (AUTO) 94 K/uL (140-450); RED BLOOD CELL COUNT(AUTO) 2.98 MIL/uL (4.20-6.10); RED CELL DISTRIBUTION WIDTH 18.7 % (11.6-13.7); WHITE BLOOD COUNT (AUTO) 21.9 K/uL (4.8-10.8)
[2024-02-28 08:25] LABS: ANISOCYTOSIS 1+; BASOPHILS % (MANUAL) 0 % (0-2); BLASTS, MANUAL % 0 % (0-0); EOSINOPHILS % (MANUAL) 4 % (0-4); LYMPHOCYTES % (MANUAL) 6 % (20-46); METAMYELOCYTES % 2 % (0-0); MONOCYTES % (MANUAL) 2 % (5-12); MYELOCYTES % 0 % (0-0); OTHER CELLS,MANUAL % 0 (0-0); PLASMA CELLS 0; PLATELET ESTIMATE SLIGHTLY DECREASED; PROMYELOCYTES % 0 % (0-0); SMUDGE CELLS 0
[2024-02-28] MEDS: VANCOMYCIN HCL 750 MG in DEXTROSE 5% 250 ML IV SCH (13:14)
[2024-02-28] MEDS ORDERED: TOBRAMYCIN PER PHARMACY MC PRN ×2 (19:00)
[2024-02-28] MEDS ORDERED: TOBRAMYCIN 80 MG/2 ML VIAL ONE (20:10)
[2024-02-28] MEDS: DEXTROSE 5% IV ONE (20:13)
[2024-02-28] MEDS: TOBRAMYCIN IV ONE (20:13)
[2024-02-29] VITALS (30 sets, daily range): BP systolic 85–120; BP diastolic 51–71; PULSE 89–109; RESP 12–21; TEMP 96–97.8; O2SAT 94–100
[2024-02-29 06:26] LABS: ALBUMIN 1.2 g/dL (3.4-5.0); ANION GAP 11.1 (8-16); CALCIUM 11.3 mg/dL (8.5-10.1); CREATININE 3.5 mg/dL (0.6-1.3); POTASSIUM 4.1 mmol/L (3.5-5.1); TOTAL BILIRUBIN 0.4 mg/dL (0.0-1.0); TOTAL PROTEIN, SERUM 5.7 g/dL (6.4-8.2)
[2024-02-29 07:36] LABS: BASOPHILS # (AUTO) 0.1 K/uL (0.00-0.22); BASOPHILS % (AUTO) 0.6 % (0.0-2.0); EOSINOPHILS # (AUTO) 1.1 K/uL (0-0.4); EOSINOPHILS % (AUTO) 4.6 % (0.0-4.0); HEMATOCRIT 25.8 % (36-52); HEMOGLOBIN 8.2 g/dL (12.0-18.0); LYMPHOCYTES # (AUTO) 1.9 K/uL (2.0-11.5); LYMPHOCYTES % (AUTO) 8.3 % (20.5-51.1); MEAN CORPUSCULAR HEMOGLOBIN 29 pg (27-31); MEAN CORPUSCULAR HGB CONC 32 g/dL (33-37); MEAN CORPUSCULAR VOLUME 92.4 fL (80-94); MONOCYTES % (AUTO) 4.3 % (1.7-9.3); NEUTROPHILS # (AUTO) 19.3 K/uL (1.8-7.7); NEUTROPHILS % (AUTO) 82.2 % (42.2-75.2); PLATELET COUNT (AUTO) 104 K/uL (140-450); RED CELL DISTRIBUTION WIDTH 19.1 % (11.6-13.7); WHITE BLOOD COUNT (AUTO) 23.5 K/uL (4.8-10.8)
[2024-02-29] MEDS: METOCLOPRAMIDE 10 MG/2 ML INJ VIAL IVP SCH (20:30)
[2024-02-29] MEDS: POLYETHYLENE GLYCOL 17 GM/PKT PO SCH (20:31)
[2024-03-01] VITALS (33 sets, daily range): BP systolic 85–137; BP diastolic 47–75; PULSE 72–98; RESP 14–22; TEMP 97.1–98.1; O2SAT 97–100
[2024-03-01 06:06] LABS: ALBUMIN 1.3 g/dL (3.4-5.0); ANION GAP 11.9 (8-16); CALCIUM 10.9 mg/dL (8.5-10.1); CREATININE 2.9 mg/dL (0.6-1.3); POTASSIUM 3.9 mmol/L (3.5-5.1); TOTAL BILIRUBIN 0.4 mg/dL (0.0-1.0); TOTAL PROTEIN, SERUM 6.2 g/dL (6.4-8.2)
[2024-03-01 06:48] LABS: HEMATOCRIT 26.1 % (36-52); HEMOGLOBIN 8.4 g/dL (12.0-18.0); MEAN CORPUSCULAR HEMOGLOBIN 30 pg (27-31); MEAN CORPUSCULAR HGB CONC 32 g/dL (33-37); MEAN CORPUSCULAR VOLUME 92.6 fL (80-94); PLATELET COUNT (AUTO) 98 K/uL (140-450); RED BLOOD CELL COUNT(AUTO) 2.82 MIL/uL (4.20-6.10); RED CELL DISTRIBUTION WIDTH 19.2 % (11.6-13.7)
[2024-03-01 06:50] LABS: WHITE BLOOD COUNT (AUTO) 29.7 K/uL (4.8-10.8)
[2024-03-01 07:51] LABS: EOSINOPHILS % (MANUAL) 5 % (0-4); LYMPHOCYTES % (MANUAL) 5 % (20-46); MONOCYTES % (MANUAL) 7 % (5-12)
[2024-03-01 07:52] LABS: METAMYELOCYTES % 14 % (0-0); MYELOCYTES % 6 % (0-0); PLATELET ESTIMATE DECREASED; POLYCHROMASIA 1+
[2024-03-01] MEDS: TOBRAMYCIN IV SCH (15:11)
[2024-03-01] MEDS: DEXTROSE 5% IV SCH (15:11)
[2024-03-01] MEDS: PIPERACILLIN/TAZOBACTAM 2.25 GM in DEXTROSE 5% 50 ML IV SCH (20:07)
[2024-03-02] VITALS (32 sets, daily range): BP systolic 83–139; BP diastolic 38–81; PULSE 67–89; RESP 6–21; TEMP 97–97.5; O2SAT 96–100
[2024-03-02 05:11] LABS: BASOPHILS # (AUTO) 0.1 K/uL (0.00-0.22); BASOPHILS % (AUTO) 0.6 % (0.0-2.0); EOSINOPHILS # (AUTO) 0.9 K/uL (0-0.4); EOSINOPHILS % (AUTO) 3.9 % (0.0-4.0); HEMATOCRIT 25.9 % (36-52); HEMOGLOBIN 8.3 g/dL (12.0-18.0); LYMPHOCYTES # (AUTO) 2.2 K/uL (2.0-11.5); LYMPHOCYTES % (AUTO) 9.9 % (20.5-51.1); MEAN CORPUSCULAR HEMOGLOBIN 29 pg (27-31); MEAN CORPUSCULAR HGB CONC 32 g/dL (33-37); MEAN CORPUSCULAR VOLUME 91.4 fL (80-94); MONOCYTES # (AUTO) 1.2 K/uL (0.8-1.0); MONOCYTES % (AUTO) 5.5 % (1.7-9.3); NEUTROPHILS # (AUTO) 17.9 K/uL (1.8-7.7); NEUTROPHILS % (AUTO) 80.1 % (42.2-75.2); PLATELET COUNT (AUTO) 73 K/uL (140-450); RED BLOOD CELL COUNT(AUTO) 2.84 MIL/uL (4.20-6.10); RED CELL DISTRIBUTION WIDTH 19.2 % (11.6-13.7); WHITE BLOOD COUNT (AUTO) 22.4 K/uL (4.8-10.8)
[2024-03-02 06:00] LABS: ALBUMIN 1.2 g/dL (3.4-5.0); ANION GAP 14.1 (8-16); CALCIUM 10.8 mg/dL (8.5-10.1); CARBON DIOXIDE 25.8 mmol/L (21-32); CREATININE 3.4 mg/dL (0.6-1.3); POTASSIUM 3.9 mmol/L (3.5-5.1); TOTAL BILIRUBIN 0.4 mg/dL (0.0-1.0); TOTAL PROTEIN, SERUM 6.1 g/dL (6.4-8.2)
[2024-03-02] MEDS: VANCOMYCIN HCL 750 MG in DEXTROSE 5% 250 ML IV SCH (11:37)
[2024-03-02] MEDS: ALBUMIN HUMAN 25% 100 ML IV SCH (13:28)
[2024-03-03] VITALS (32 sets, daily range): BP systolic 72–140; BP diastolic 23–79; PULSE 77–99; RESP 12–21; TEMP 96.7–97.6; O2SAT 95–100
[2024-03-03 06:25] LABS: ALBUMIN 1.5 g/dL (3.4-5.0); ANION GAP 13.2 (8-16); CARBON DIOXIDE 24.6 mmol/L (21-32); CREATININE 2.7 mg/dL (0.6-1.3); POTASSIUM 3.8 mmol/L (3.5-5.1); TOTAL BILIRUBIN 0.4 mg/dL (0.0-1.0); TOTAL PROTEIN, SERUM 6.1 g/dL (6.4-8.2)
[2024-03-03 07:03] LABS: BASOPHILS # (AUTO) 0.1 K/uL (0.00-0.22); BASOPHILS % (AUTO) 0.7 % (0.0-2.0); EOSINOPHILS # (AUTO) 0.5 K/uL (0-0.4); EOSINOPHILS % (AUTO) 2.8 % (0.0-4.0); HEMATOCRIT 23.5 % (36-52); HEMOGLOBIN 7.5 g/dL (12.0-18.0); LYMPHOCYTES # (AUTO) 2.2 K/uL (2.0-11.5); LYMPHOCYTES % (AUTO) 11.8 % (20.5-51.1); MEAN CORPUSCULAR HEMOGLOBIN 30 pg (27-31); MEAN CORPUSCULAR HGB CONC 32 g/dL (33-37); MEAN CORPUSCULAR VOLUME 92.5 fL (80-94); MONOCYTES # (AUTO) 0.8 K/uL (0.8-1.0); MONOCYTES % (AUTO) 4.4 % (1.7-9.3); NEUTROPHILS # (AUTO) 15.2 K/uL (1.8-7.7); NEUTROPHILS % (AUTO) 80.3 % (42.2-75.2); PLATELET COUNT (AUTO) 62 K/uL (140-450); RED BLOOD CELL COUNT(AUTO) 2.54 MIL/uL (4.20-6.10); RED CELL DISTRIBUTION WIDTH 19.8 % (11.6-13.7); WHITE BLOOD COUNT (AUTO) 18.9 K/uL (4.8-10.8)
[2024-03-03] MEDS ORDERED: ACETAMINOPHEN 325 MG/10 ML UDC GT PRN (07:55)
[2024-03-03] MEDS: ZINC SULF 220 MG CAP GT SCH (08:55)
[2024-03-03] MEDS ORDERED: BUMETANIDE 1 MG/4 ML VIAL IV SCH (11:06)
[2024-03-03] MEDS: TOBRAMYCIN IV SCH (15:02)
[2024-03-03] MEDS: DEXTROSE 5% IV SCH (15:02)
[2024-03-04] VITALS (31 sets, daily range): BP systolic 87–115; BP diastolic 45–99; PULSE 88–102; RESP 13–29; TEMP 96.4–97.8; O2SAT 94–100
[2024-03-04] MEDS: NOREPINEPHRINE 4 MG/4 ML VIAL IV ONE (00:31)
[2024-03-04 06:13] LABS: BASOPHILS # (AUTO) 0.1 K/uL (0.00-0.22); BASOPHILS % (AUTO) 0.6 % (0.0-2.0); EOSINOPHILS # (AUTO) 0.6 K/uL (0-0.4); EOSINOPHILS % (AUTO) 2.8 % (0.0-4.0); HEMATOCRIT 25.3 % (36-52); HEMOGLOBIN 8.1 g/dL (12.0-18.0); LYMPHOCYTES # (AUTO) 2.7 K/uL (2.0-11.5); LYMPHOCYTES % (AUTO) 12.2 % (20.5-51.1); MEAN CORPUSCULAR HEMOGLOBIN 30 pg (27-31); MEAN CORPUSCULAR HGB CONC 32 g/dL (33-37); MEAN CORPUSCULAR VOLUME 91.7 fL (80-94); MONOCYTES # (AUTO) 0.8 K/uL (0.8-1.0); MONOCYTES % (AUTO) 3.8 % (1.7-9.3); NEUTROPHILS % (AUTO) 80.6 % (42.2-75.2); PLATELET COUNT (AUTO) 75 K/uL (140-450); RED BLOOD CELL COUNT(AUTO) 2.76 MIL/uL (4.20-6.10); WHITE BLOOD COUNT (AUTO) 22.3 K/uL (4.8-10.8)
[2024-03-04 06:42] LABS: ALBUMIN 1.4 g/dL (3.4-5.0); ANION GAP 16.6 (8-16); CARBON DIOXIDE 22.2 mmol/L (21-32); CREATININE 3.3 mg/dL (0.6-1.3); POTASSIUM 3.8 mmol/L (3.5-5.1); TOTAL BILIRUBIN 0.4 mg/dL (0.0-1.0); TOTAL PROTEIN, SERUM 6.2 g/dL (6.4-8.2)
[2024-03-05] VITALS (31 sets, daily range): BP systolic 88–123; BP diastolic 43–75; PULSE 80–103; RESP 12–26; TEMP 96.4–97.5; O2SAT 96–100
[2024-03-05 05:47] LABS: BASOPHILS # (AUTO) 0.1 K/uL (0.00-0.22); BASOPHILS % (AUTO) 0.4 % (0.0-2.0); EOSINOPHILS # (AUTO) 0.2 K/uL (0-0.4); EOSINOPHILS % (AUTO) 1.1 % (0.0-4.0); HEMATOCRIT 23.3 % (36-52); HEMOGLOBIN 7.6 g/dL (12.0-18.0); LYMPHOCYTES # (AUTO) 2.7 K/uL (2.0-11.5); MEAN CORPUSCULAR HEMOGLOBIN 30 pg (27-31); MEAN CORPUSCULAR HGB CONC 33 g/dL (33-37); MEAN CORPUSCULAR VOLUME 91.4 fL (80-94); MONOCYTES # (AUTO) 0.9 K/uL (0.8-1.0); NEUTROPHILS # (AUTO) 18.4 K/uL (1.8-7.7); NEUTROPHILS % (AUTO) 82.5 % (42.2-75.2); PLATELET COUNT (AUTO) 65 K/uL (140-450); RED BLOOD CELL COUNT(AUTO) 2.55 MIL/uL (4.20-6.10); RED CELL DISTRIBUTION WIDTH 19.9 % (11.6-13.7); WHITE BLOOD COUNT (AUTO) 22.3 K/uL (4.8-10.8)
[2024-03-05 06:50] LABS: ALBUMIN 1.2 g/dL (3.4-5.0); ANION GAP 15.6 (8-16); CALCIUM 9.6 mg/dL (8.5-10.1); CARBON DIOXIDE 21.7 mmol/L (21-32); POTASSIUM 4.3 mmol/L (3.5-5.1); TOTAL BILIRUBIN 0.5 mg/dL (0.0-1.0)
[2024-03-05] MEDS: TOBRAMYCIN IV SCH (21:42)
[2024-03-05] MEDS: DEXTROSE 5% IV SCH (21:42)
[2024-03-05] MEDS: VANCOMYCIN HCL 750 MG in DEXTROSE 5% 250 ML IV SCH (22:41)
[2024-03-06] VITALS (30 sets, daily range): BP systolic 96–153; BP diastolic 50–101; PULSE 76–102; RESP 11–25; TEMP 96–97.9; O2SAT 99–100
[2024-03-06 06:28] LABS: ALBUMIN 1.2 g/dL (3.4-5.0); ANION GAP 15.5 (8-16); CARBON DIOXIDE 22.7 mmol/L (21-32); CREATININE 2.9 mg/dL (0.6-1.3); POTASSIUM 3.2 mmol/L (3.5-5.1); TOTAL BILIRUBIN 0.4 mg/dL (0.0-1.0); TOTAL PROTEIN, SERUM 6.4 g/dL (6.4-8.2)
[2024-03-06 06:32] LABS: BASOPHILS # (AUTO) 0.1 K/uL (0.00-0.22); BASOPHILS % (AUTO) 0.2 % (0.0-2.0); EOSINOPHILS # (AUTO) 0.2 K/uL (0-0.4); EOSINOPHILS % (AUTO) 0.7 % (0.0-4.0); HEMATOCRIT 25.7 % (36-52); HEMOGLOBIN 8.3 g/dL (12.0-18.0); LYMPHOCYTES # (AUTO) 1.9 K/uL (2.0-11.5); LYMPHOCYTES % (AUTO) 8.4 % (20.5-51.1); MEAN CORPUSCULAR HEMOGLOBIN 30 pg (27-31); MEAN CORPUSCULAR HGB CONC 32 g/dL (33-37); MONOCYTES # (AUTO) 0.6 K/uL (0.8-1.0); MONOCYTES % (AUTO) 2.5 % (1.7-9.3); NEUTROPHILS # (AUTO) 20.1 K/uL (1.8-7.7); NEUTROPHILS % (AUTO) 88.2 % (42.2-75.2); PLATELET COUNT (AUTO) 50 K/uL (140-450); RED BLOOD CELL COUNT(AUTO) 2.76 MIL/uL (4.20-6.10); RED CELL DISTRIBUTION WIDTH 21.4 % (11.6-13.7); WHITE BLOOD COUNT (AUTO) 22.8 K/uL (4.8-10.8)
[2024-03-06] MEDS: POTASSIUM CHLORIDE 20% 40 MEQ/15 ML UDC GT SCH (17:44)
[2024-03-07] VITALS (16 sets, daily range): BP systolic 0–139; BP diastolic 0–79; PULSE 0–118; RESP 0–54; TEMP 95.3–97.3; O2SAT 0–100
[2024-03-07 06:31] LABS: ALBUMIN 1.2 g/dL (3.4-5.0); ANION GAP 17.1 (8-16); CALCIUM 9.4 mg/dL (8.5-10.1); CARBON DIOXIDE 20.6 mmol/L (21-32); CREATININE 3.4 mg/dL (0.6-1.3); POTASSIUM 3.7 mmol/L (3.5-5.1); TOTAL BILIRUBIN 0.4 mg/dL (0.0-1.0); TOTAL PROTEIN, SERUM 6.4 g/dL (6.4-8.2)
[2024-03-07] MEDS: DEXMEDETOMIDINE HCL 400 MCG in NACL 0.9% 96 ML IV PRN (06:53)
[2024-03-07 06:54] LABS: EOSINOPHILS # (AUTO) 0.2 K/uL (0-0.4)
[2024-03-07 07:05] LABS: HEMOGLOBIN 8.1 g/dL (12.0-18.0)
[2024-03-07 07:06] LABS: HEMATOCRIT 25.2 % (36-52); MEAN CORPUSCULAR HEMOGLOBIN 30 pg (27-31); MEAN CORPUSCULAR HGB CONC 32 g/dL (33-37); MEAN CORPUSCULAR VOLUME 92.1 fL (80-94); RED BLOOD CELL COUNT(AUTO) 2.74 MIL/uL (4.20-6.10); RED CELL DISTRIBUTION WIDTH 21.5 % (11.6-13.7); WHITE BLOOD COUNT (AUTO) 17.8 K/uL (4.8-10.8)
[2024-03-07 07:07] LABS: NEUTROPHILS % (AUTO) 85.4 % (42.2-75.2)
[2024-03-07 07:08] LABS: BASOPHILS % (AUTO) 0.2 % (0.0-2.0); EOSINOPHILS % (AUTO) 1.2 % (0.0-4.0); LYMPHOCYTES % (AUTO) 11.1 % (20.5-51.1); MONOCYTES % (AUTO) 2.1 % (1.7-9.3); NEUTROPHILS # (AUTO) 15.2 K/uL (1.8-7.7)
[2024-03-07 07:09] LABS: MONOCYTES # (AUTO) 0.4 K/uL (0.8-1.0)
[2024-03-07 07:11] LABS: PLATELET COUNT (AUTO) 29 K/uL (140-450)
[2024-03-07] MEDS: DEXMEDETOMIDINE HCL 100 MCG/ML 2 ML VIAL IV ONE (07:20)
[2024-03-07] MEDS ORDERED: ALBUTEROL SULFATE/IPRATROPIU 3 ML SOL IH PRN (07:40)
[2024-03-07] MEDS: ALBUTEROL SULFATE/IPRATROPIU 3 ML SOL IH ONE (07:43)
[2024-03-07] MEDS ORDERED: NACL 0.9% 1,000 ML IV SCH (09:10)
[2024-03-07] MEDS ORDERED: COMMUNICATION ORDER MC PRN (09:25)
[2024-03-07] MEDS: PROPOFOL 1000 MG/100 ML PREMIX 100 ML IV PRN (10:14)
[2024-03-07] MEDS: PHENYLEPHRINE 100 MG in NACL 0.9% 250 ML IV PRN (10:37)
[2024-03-07] MEDS: fentaNYL citrate 1 MG in NACL 0.9% 80 ML IV PRN (10:46)
[2024-03-07] MEDS: VASOPRESSIN 40 UNITS in NACL 0.9% 250 ML IV PRN (11:01)
== END 2024-03-07 21:40 | DRG 720 ==
LOC: MED 02:40 → MTU 05:57 → MED 05:57 → MTU 15:28 → MIC 02-23 21:26
PROVIDERS: ADMIT Student in an Organized Health Care Education/Training Program; ATTEND Student in an Organized Health Care Education/Training Program
PROC: 5A1955Z Respiratory Ventilation, Greater than 96 Consecutive Hours (ICD-10-PCS; principal; 2024-02-22)
PROC: 30233N1 Transfusion of Nonautologous Red Blood Cells into Peripheral Vein, Percutaneous Approach (ICD-10-PCS; 2024-02-22)
PROC: 5A1D70Z Performance of Urinary Filtration, Intermittent, Less than 6 Hours Per Day (ICD-10-PCS; 2024-02-22)
PROC: 5A1D70Z Performance of Urinary Filtration, Intermittent, Less than 6 Hours Per Day (ICD-10-PCS; 2024-02-23)
PROC: 5A1D70Z Performance of Urinary Filtration, Intermittent, Less than 6 Hours Per Day (ICD-10-PCS; 2024-02-25)
PROC: 5A1D70Z Performance of Urinary Filtration, Intermittent, Less than 6 Hours Per Day (ICD-10-PCS; 2024-02-27)
PROC: 5A1D70Z Performance of Urinary Filtration, Intermittent, Less than 6 Hours Per Day (ICD-10-PCS; 2024-03-02)
PROC: 5A1D70Z Performance of Urinary Filtration, Intermittent, Less than 6 Hours Per Day (ICD-10-PCS; 2024-03-05)
DX: A41.9 Sepsis, unspecified organism (principal); J96.21 Acute and chronic respiratory failure with hypoxia; R65.21 Severe sepsis with septic shock; E43 Unspecified severe protein-calorie malnutrition; L89.154 Pressure ulcer of sacral region, stage 4; J15.1 Pneumonia due to Pseudomonas; E87.20 Acidosis, unspecified; I12.0 Hypertensive chronic kidney disease with stage 5 chronic kidney disease or end stage renal disease; N18.6 End stage renal disease; D63.1 Anemia in chronic kidney disease; I48.20 Chronic atrial fibrillation, unspecified; E16.2 Hypoglycemia, unspecified; L03.116 Cellulitis of left lower limb; L03.115 Cellulitis of right lower limb; Z99.11 Dependence on respirator [ventilator] status; Z99.2 Dependence on renal dialysis; Z79.01 Long term (current) use of anticoagulants; Z68.28 Body mass index [BMI] 28.0-28.9, adult; Z93.1 Gastrostomy status; Z79.899 Other long term (current) drug therapy; Z93.0 Tracheostomy status
CPT/HCPCS: 36415; 36430; 36600; 71045; 71250; 73630; 73700; 74018; 80048; 80053; 80076; 80200; 80202; 81001; 82150; 82272; 82607; 82803; 82948; 83605; 83690; 83880; 85018; 85025; 85045; 86886; 86900; 86901; 86920; 87040; 87070; 87075; 87081; 87086; 87186; 87205; 90935; 93925; 93970; 94002; 94003; 94640; 96361; 96365; 96375; 99285; C9113; J1644; J2185; J2370; J2405; J2543; J2704; J2765; J3010; J3260; J3370; J3480; J3490; J7030; J7060; P9016; P9046; Q0092; Q5106